=== PATIENT | male | born 1965 | race Caucasian/White ===

== ENCOUNTER 2018-01-17 15:18 | Inpatient (IN) | payer MEDICARE, MEDICAID ==
[~2018-01-17] VITALS: Ht 180.3 cm; Wt 79.0 kg
--- NOTE | ~2018-01-17 | HEMODYNAMI ---
PATIENT:GONSALO KRAUSE MEDICAL RECORD: [id number] : [birth year] LOCATION:[facility] ADMISSION DATE: 01/17/18 Generatedon:01/17/201820:47 Patient name: GONSALO KRAUSE Patient #: [id number] SSN: DO B: 1965 Date of study: 01/17/2018 Page: Of Hemodynamic Procedure Report Patient Data Patient Demographics Procedure consent was obtained First Name: GONSALO Gender: Male Last Name: JIMI : 1965 Patient #: [id number] Age: 52 year(s) Race: Unknown Additional ID: [id number] Past Medical History Allergies: No known allergies Admission Admission Data Admission Date: 01/17/2018 Admission Time: 15:18 Procedure Procedure Types Cath Procedure Peripheral Cath Diagnostic Procedure Abd/Extremity Extremities Procedure Description Procedure Date Procedure Date: 01/17/2018 Procedure Start Time: 18:10 Procedure Staff Name Function Favian Still MD Performing Physician Yusuf Mak RT Monitor Vee Reilly RT Scrub Hilton Roger RN Nurse Procedure Data Cath Procedure Fluoroscopy Diagnostic fluoroscopy Total fluoroscopy Time: time: 17.3 min 17.3 min Diagnostic fluoroscopy Total fluoroscopy dose: 525 dose: 525 mGy mGy Contrast Material Contrast Material Type Amount (ml) Isovue 300 180 Procedure Medications Medication Administration Route Dosage Versed I.V. 1 mg Fentanyl I.V. 50 mcg unlisted medication 1 Versed I.V. 1 mg Fentanyl I.V. 50 mcg Versed I.V. 1 mg Fentanyl I.V. 50 mcg Vancomycin I.V.P.B 1 g Versed I.V. 1 mg Fentanyl I.V. 50 mcg Heparin Flush Bag added to field 3 bags (1000units/500ml NS) Lidocaine 1% added to field 20 Versed I.V. 1 mg Fentanyl I.V. 50 mcg unlisted medication 10 Versed I.V. 1 mg Fentanyl I.V. 50 mcg Heparin Bolus I.V. 5000 units Heparin Bolus I.V. 2000 units Versed I.V. 1 mg Fentanyl I.V. 50 mcg Fentanyl I.V. 50 mcg Versed I.V. 1 mg Hemodynamics Rest Heart Rate: 107 (bpm) Snapshots Pre Cath Intra NCS Post Cath Vital Signs Time Heart Resp SPO2 etCO2 NIBP (mmHg) Rhythm Pain Sedation Rate (ipm) (%) (mmHg) Status Level (bpm) 18:05:43 109 29 97 19.5 129/83(97) NSR 0 (11) 10(A) , No pain 18:09:53 109 31 97 0 125/82(100) NSR 0 (11) 10(A) , No pain 18:14:03 113 20 96 19.5 131/80(102) NSR 0 (11) 10(A) , No pain 18:19:02 117 25 94 27 Measuring NSR 0 (11) 10(A) , No pain 18:19:10 116 24 95 24.7 121/79(100) NSR 0 (11) 10(A) , No pain 18:23:28 117 22 94 26.2 114/68(82) NSR 0 (11) 10(A) , No pain 18:27:34 115 17 93 33 120/81(98) NSR 0 (11) 10(A) , No pain 18:31:44 117 18 91 30.7 129/79(91) NSR 0 (11) 10(A) , No pain 18:35:54 119 15 92 33 124/77(97) NSR 0 (11) 10(A) , No pain 18:40:00 120 16 93 30 123/79(94) NSR 0 (11) 10(A) , No pain 18:44:07 119 17 92 30 124/80(93) NSR 0 (11) 10(A) , No pain 18:48:17 105 19 89 27 138/93(110) NSR 0 (11) 10(A) , No pain 18:53:16 105 18 90 28.5 Measuring NSR 0 (11) 10(A) , No pain 18:53:18 105 18 90 29.2 125/88(103) NSR 0 (11) 10(A) , No pain 18:57:26 109 18 94 31.5 130/87(103) NSR 0 (11) 10(A) , No pain 19:01:36 109 16 92 23.3 149/128(138) NSR 0 (11) 10(A) , No pain 19:04:57 109 20 87 27.8 130/92(109) NSR 0 (11) 10(A) , No pain 19:09:05 112 17 89 33 130/83(103) NSR 0 (11) 10(A) , No pain 19:13:15 112 18 90 33.8 132/88(106) NSR 0 (11) 10(A) , No pain 19:17:23 111 18 91 33 134/91(109) NSR 0 (11) 10(A) , No pain 19:21:34 107 19 92 27 135/90(107) NSR 0 (11) 10(A) , No pain 19:25:42 109 18 88 29.3 135/95(114) NSR 0 (11) 10(A) , No pain 19:29:52 104 19 93 30 138/96(122) NSR 0 (11) 10(A) , No pain 19:34:02 104 20 96 26.3 146/103(126) NSR 0 (11) 10(A) , No pain 19:38:16 103 16 96 30.8 152/106(120) NSR 0 (11) 10(A) , No pain 19:42:16 86 23 92 19.5 117/99(108) NSR 0 (11) 10(A) , No pain 19:46:22 115 19 61 27.7 132/86(106) NSR 0 (11) 10(A) , No pain 19:50:31 110 18 74 27.7 139/92(111) NSR 0 (11) 10(A) , No pain 19:54:43 112 19 85 26.2 138/91(119) NSR 0 (11) 10(A) , No pain 19:58:53 109 19 84 27.7 140/100(120) NSR 0 (11) 10(A) , No pain 20:03:05 114 19 25.5 139/93(121) NSR 0 (11) 10(A) , No pain 20:07:17 114 19 22.5 135/97(117) NSR 0 (11) 10(A) , No pain 20:11:27 114 18 96 18.8 145/101(113) NSR 0 (11) 10(A) , No pain 20:15:35 115 20 73 22.5 146/98(114) NSR 0 (11) 10(A) , No pain 20:19:40 121 22 79 17.3 136/96(105) NSR 0 (11) 10(A) , No pain 20:23:50 114 19 98 21 148/104(133) NSR 0 (11) 10(A) , No pain 20:28:02 115 21 99 21.8 151/103(124) NSR 0 (11) 10(A) , No pain 20:33:01 113 22 99 12.7 Measuring NSR 0 (11) 10(A) , No pain 20:33:14 112 22 100 12 150/103(127) NSR 0 (11) 10(A) , No pain 20:38:13 118 26 99 18 Measuring NSR 0 (11) 10(A) , No pain 20:39:02 97 20.3 No Cuff NSR 0 (11) 10(A) , No pain 20:43:01 78 10.5 No Cuff NSR 0 (11) 10(A) , No pain 20:47:01 17 86 9.7 No Cuff NSR 0 (11) 10(A) , No pain Medications Time Medication Route Dose Verified Delivered Reason Notes Effectiveness by by 18:14:13 Versed I.V. 1 mg Favian Canela for Acacia Still RN sedation 18:14:24 Fentanyl I.V. 50 mcg Favian Canela for Acacia Still RN sedation 18:14:48 cefepime ivpb 1 gm Acacia Lee RN, MD 18:17:55 Versed I.V. 1 mg Favian Canela for Acacia Still RN sedation 18:18:03 Fentanyl I.V. 50 mcg aFvian Canela for Acacia Still RN sedation 18:27:26 Versed I.V. 1 mg Favian Poseyr for Acacia Still RN sedation 18:27:36 Fentanyl I.V. 50 mcg Favian Canela for Acacia Still RN sedation 18:27:49 Vancomycin I.V.P.B 1 g Acacia Lee RN, MD 18:30:13 Heparin Bolus I.V. 5000 units Favian Hitlon Acacia Still RN, MD 18:32:09 Versed I.V. 1 mg Favian Hilton for Acacia Still RN sedation 18:32:17 Fentanyl I.V. 50 mcg Favian Hilton for Acacia Still RN sedation 18:32:36 Heparin Flush added 3 bags Favian Ballesteros used for Bag to Cheko Still MD procedure (1000units/500ml field GROSS NS) 18:32:50 Lidocaine 1% added 20ml vial Favian Ballesteros used for to Cheko Still MD procedure field GROSS 18:48:46 Versed I.V. 1 mg Favian Hilton for Acacia Still RN sedation 18:48:54 Fentanyl I.V. 50 mcg Favian Hilton for Acacia Still RN sedation 18:50:58 angiojet pulse 10mg/100ml Favian Ballesteros used for Sprays Cheko Still MD procedure 19:04:18 Versed I.V. 1 mg Favian Hilton for Acacia Still RN sedation 19:04:27 Fentanyl I.V. 50 mcg Favian Hilton for Acacia Still RN sedation 19:25:16 Heparin Bolus I.V. 2000 units Favian Hilton Acacia Still RN, MD 19:38:41 Versed I.V. 1 mg Favian Hilton for Acacia Still RN sedation 19:38:53 Fentanyl I.V. 50 mcg Favian Hilton for Acacia Still RN sedation 19:54:02 Fentanyl I.V. 50 mcg Favian Hilton for Acacia Still RN sedation 19:54:27 Versed I.V. 1 mg Favian Hilton for Acacia Still RN sedation Procedure Log Time Note 17:35:33 Yusuf Mak RT (R) (CV) sent for patient. Start room use. 17:35:43 Time tracking: Regular hours (M-F 7:00 - 5:00) 17:35:48 Plan of Care:Hemodynamics will remain stable., Cardiac rhythm will remain stable., Comfort level will be maintained., Respiratory function will remain adequate., Patient/ family verbilizes understanding of procedure., Procedure tolerated without complication., Recovers from procedure without complications.. 17:35:55 Patient received from ED to IR Alert and oriented. Tansferred to table in Prone position. 17:36:02 Correct patient and procedure confirmed by team. 17:36:05 Signed procedure consent form obtained from patient. 17:36:07 Full Disclosure recording started 17:36:08 ECG and BP/O2 sat monitors applied to patient. 17:36:09 - 17:36:14 H&P Date Dictated: 01/17/2018 Within 30 days and on chart.. 17:36:16 Pre-op teaching completed and patient verbalized understanding. 17:36:17 Pre-procedure instructions explained to patient. 17:36:19 Family unavailable. 17:36:22 Patient NPO since Midnight. 17:36:30 Is the patient allergic to Iodine/contrast media? No. 17:36:37 Is patient on blood thinner?No 17:36:38 Patient diabetic? Yes. 17:36:40 If diabetic: On Metformin? No 17:36:41 - 17:36:42 ----Pre-sedation anethsthesia assessment.---- 17:36:45 Previous problem with sedation/anesthesia? No ? 17:36:47 Snore? Yes 17:36:48 Sleep apnea? No 17:36:50 Deviated septum? No 17:36:52 Opens mouth fully? Yes 17:36:57 Sticks out tongue? Yes 17:36:59 Airway obstruction? No ? 17:37:01 Dentures? No ? 17:37:10 Patient pain scale 0/10 no pain. 17:37:21 IV patent on arrival in left forearm with 0.9% NaCl at [facility]. 17:37:27 Use device set IR Diagnostic 17:37:28 ACIST Syringe (62378) opened to sterile field. 17:37:29 ACIST Hand Control (09036) opened to sterile field. 17:37:29 ACIST Manifold (32203) opened to sterile field. 17:37:30 Bag Decanter (2002S) opened to sterile field. 17:37:30 Sterile Angiographic Pack opened to sterile field. 17:37:31 Tegaderm 4 x 4 (1626W) opened to sterile field. 17:37:41 lt Popliteal region area was prepped with chlora-prep and draped in sterile fashion 17:37:53 Alarms reviewed by R. N. 17:37:54 Sharps counted by scrub and verified by R.N. 18:04:38 Vital chart was started 18:04:39 Baseline sample Acquired. 18:10:01 Procedure started. 18:10:23 Local anesthetic to left popliteal vein with Lidocaine 1% by Favian Still MD.INITIAL ACCESS ONLY 18:10:40 Physician arrived 18:10:40 --------ALL STOP TIME OUT------ 18:10:41 Final Timeout: patient, procedure, and site verified with staff and physician. All members of the team are in agreement. 18:10:45 Popliteal region site verified by team. 18:10:50 Sedation plan: IV Moderate Sedation Medication:Versed, Fentanyl 18:11:39 Cordis 6Fr BRITE TIP 11cm sheath opened to sterile field. 18:11:40 DOC .035 wire (S88483) opened to sterile field. 18:11:41 Micropuncture VSI 4FR kit opened to sterile field. 18:11:42 TUBING Contrast Injection High Pressure (NLN655F) opened to sterile field. 18:13:20 Patient allergic to No known allergies 18:13:56 GLIDE CATHETER 5FR ANGLED 65cm (CG507) opened to sterile field. 18:14:13 Versed 1 mg I.V. was administered by Hilton Roger RN; for sedation; 18:14:24 Fentanyl 50 mcg I.V. was administered by Hilton Roger RN; for sedation ; 18:14:48 cefepime 1 gm ivpb was administered by Hilton Roger RN; ; 18:17:55 Versed 1 mg I.V. was administered by Hilton Roger RN; for sedation; 18:18:03 Fentanyl 50 mcg I.V. was administered by Hilton Roger RN; for sedation ; 18:26:09 TORQUE DEVICE PLASTIC .038 ( TD01) opened to sterile field. 18:27:26 Versed 1 mg I.V. was administered by Hilton Roger RN; for sedation; 18:27:36 Fentanyl 50 mcg I.V. was administered by Hilton Roger RN; for sedation ; 18:27:49 Vancomycin 1 g I.V.P.B was administered by Hilton Roger RN; ; 18:28:39 CXI Catheter 90cm (I98071) opened to sterile field. 18:30:13 Heparin Bolus 5000 units I.V. was administered by Hilton Roger RN; ; 18:32:09 Versed 1 mg I.V. was administered by Hilton Roger RN; for sedation; 18:32:17 Fentanyl 50 mcg I.V. was administered by Hilton Roger RN; for sedation ; 18:32:27 HANDY 260 wire (Z20094) opened to sterile field. 18:32:36 Heparin Flush Bag (1000units/500ml NS) 3 bags added to field was administered by Favian Still MD; used for procedure; 18:32:50 Lidocaine 1% 20ml vial added to field was administered by Favian Still MD; used for procedure; 18:34:29 Angiojet Power Pulse Delivery Kit opened to sterile field. 18:34:44 Angiojet PROXI 6Fr 90CM thrombectomy catheter opened to sterile field. 18:48:46 Versed 1 mg I.V. was administered by Hilton Roger RN; for sedation; 18:48:54 Fentanyl 50 mcg I.V. was administered by Hilton Roger RN; for sedation ; 18:50:58 angiojet 10mg/100ml pulse Sprays was administered by Favian Still MD; used for procedure; 19:04:18 Versed 1 mg I.V. was administered by Hilton Roger RN; for sedation; 19:04:27 Fentanyl 50 mcg I.V. was administered by Hilton Roger RN; for sedation ; 19:06:28 Access obtained with 4Fr micropunture. 19:07:11 GLIDE WIRE .035 180CM STRAIGHT (XA6916) opened to sterile field. 19:09:27 Inflate balloon Inflation number: 1 A Evercross 7 x 8 x 135 Balloon ([id number]) was prepped and advanced across the Undefined1, then inflated to 10 ALLISON for 0:00 (min:sec). 19:09:58 Inflation number: 2 The Evercross 8 x 8 x 135 Balloon ([id number]) was reinflated across the Undefined1, to 10 ALLISON for 0:10 (min:sec). 19:16:12 INFLATOR BasixTOUCH (OY4421) opened to sterile field. 19:25:16 Heparin Bolus 2000 units I.V. was administered by Hilton Roger RN; ; 19:29:30 HANDY 260 wire (D05624) opened to sterile field. 19:33:19 Inflate balloon Inflation number: 3 A POWERFLEX PRO 10.0 x 40 x 80cm balloon ([id number]) was prepped and advanced across the Undefined1, then inflated to 10 ALLISON for 0:00 (min:sec). 19:38:41 Versed 1 mg I.V. was administered by Hilton Roger RN; for sedation; 19:38:53 Fentanyl 50 mcg I.V. was administered by Hilton Roger RN; for sedation ; 19:46:48 Cordis 7Fr BRITE TIP 11cm sheath opened to sterile field. 19:52:15 Inflate balloon Inflation number: 4 A Evercross 12 x 40 x 135 ([id number]) was prepped and advanced across the Undefined1, then inflated to 8 ALLISON for 0:09 (min:sec). 19:54:02 Fentanyl 50 mcg I.V. was administered by Hilton Roger RN; for sedation ; 19:54:27 Versed 1 mg I.V. was administered by Hilton Roger RN; for sedation; 20:07:58 3-0 Vicryl Single Pack [id number] opened to sterile field. 20:10:11 Procedure ended.(Physican Out) 20:10:52 Fluoroscopy time 17.30 minutes. 20:10:56 Fluoroscopy dose: 525 mGy 20:10:56 Flurop Dose total: 525 20:10:58 Sharps counted by scrub and verified by R.N. 20:10:59 Insertion/operative site no bleeding no hematoma. 20:11:04 Post-op/insertion site Left Popliteal dressed using a 4 x 4 and Tegaderm. 20:11:26 Post left popliteal vein:stable 20:15:05 Post procedure instruction explained to patient.Patient verbalizes understanding. 20:15:06 Procedure and supply charges have been captured, reviewed, submitted an d are correct. 20:34:35 Contrast amount:Isovue 300 180ml. 20:47:12 Report given to CVICU. 20:47:16 Patient transfered to CVICU with Bed. 20:47:44 Vital chart was stopped Intervention Summary Intervention Notes Time ActionType Lesion and Equipment Used Action# Pressure Duration Attributes 19:09:27 Inflate Undefined1 Evercross 7 x 8 1 10 00:00 balloon x 135 Balloon ([id number]) 19:09:58 Reinflate Undefined1 Evercross 7 x 8 2 10 00:10 balloon x 135 Balloon ([id number]) 19:33:19 Inflate Undefined1 POWERFLEX PRO 3 10 00:00 balloon 10.0 x 40 x 80cm balloon ([id number]) 19:52:15 Inflate Undefined1 Evercross 12 x 4 8 00:09 balloon 40 x 135 ([id number]) Device Usage Item Name Manufacture Quantity Catalog Number Hospital Part Current M inimal Lot# / Charge Number Stock Stock Serial# Code ACIST Syringe Acist 1 73403 016630 582483 689308 2 0 (56830) [employer] ACIST Hand Acist 1 12144 811155 356294 160682 5 Control (21310) [employer] ACIST Manifold Acist 1 73966 186812 361949 513376 5 (08105) [employer] Systems Inc Bag Decanter Microtek 1 2001S 378684 94556 921817 5 (2001S) Medical Inc. Sterile Cardinal 1 [id number] 100541 811049 5 Angiographic Health Pack Tegaderm 4 x 4 3M 1 1626W 683630 111349 722926 5 (1626W) Cordis 6Fr Cardinal 1 [id number] 576169 021455 5 BRITE TIP 11cm Health sheath DOC .035 wire [employer] 1 S59758 363111 109671 5 (K56527) Micropuncture VSI VASCULAR 1 7266V 181206 217727 5 VSI 4FR kit SOLUTIONS TUBING Contrast Merit 1 [id number] 674585 773388 444803 5 Injection High Medical Pressure (SCX859V) GLIDE CATHETER Terumo 1 CG507 288783 126360 5 5FR ANGLED 65cm (CG507) TORQUE DEVICE Alcova 1 TD01 935470 976697 443108 5 PLASTIC .038 ( Scientific TD01) CXI Catheter [facility] 1 H23718 260489 354110 073494 5 [id number] 90cm (S82461) HANDY 260 wire [facility] 2 I18741 223150 56384 266555 5 8016709 (J45778) [id number] Angiojet Power Alcova 5 339630-1059 425068 524501 862138 5 Pulse Delivery Scientific Kit Angiojet PROXI Alcova 1 452108-067 606187 061087 642003 5 6Fr 90CM Scientific thrombectomy catheter GLIDE WIRE .035 Terumo 1 BA8093 818264 809191 5 180CM STRAIGHT (QZ3974) Evercross 7 x 8 Medtronic 1 [id number] 152274 195750 516170 5 x 135 Balloon ([id number]) INFLATOR Merit 1 CB6673 063121 310417 356893 5 [id number] [facility] (AC3101) POWERFLEX PRO Cardinal 1 [id number] 705884 353102 886892 5 10.0 x 40 x Health 80cm balloon (0062962D) Cordis 7Fr Cardinal 1 [id number] 910604 817546 5 BRITE TIP 11cm Health sheath Evercross 12 x Medtronic 1 [id number] 315264 437654 855599 5 40 x 135 ([id number]) 3-0 Vicryl Ethicon 1 [id number] 148007 629540 058323 5 Single Pack [id number] Signature Audit [place] Stage Time Signature Unsigned Intra-Procedure 01/17/2018 Yusuf 8:47:39 PM [place] RT (R) (CV) Signatures Monitor : Yusuf Signature : [place] RT Date : Time : [facility] [address] [place] [address]
--- NOTE | ~2018-01-17 | EC ---
PATIENT:GONSALO KRAUSE DATE OF SERVICE: 01/17/18 SEX: M MEDICAL RECORD: [id number] DATE OF : 69 LOCATION:[place] [address] AGE OF PATIENT: 52 ADMISSION DATE: 01/17/18 REFERRING PHYSICIAN: INTERPRETING PHYSICIAN: MINAL WICK MD ECHOCARDIOGRAM REPORT ECHO CHARGES Date: CLINICAL DIAGNOSIS: ECHOCARDIOGRAPHIC MEASUREMENTS (adult normal given) AC root (d.<3.7cm) cm LV Septum d (<1.2 cm> cm Valve Excursion cm LV Septum (systole) cm Left Atria (s.<4.0cm> cm LVPW d(<1.2cm) cm RV (d.<2.3cm) cm LVPW (sytole) cm LV diastole(<5.6CM) cm MV E-F(>70mm/sec) cm LV systole cm LVOT Diameter cm MV exc.(>10mm) cm Est.ejection fraction (50-75%) % DOPPLER: LVIT cm/sec A cm/sec E cm/sec LA cm/sec RVSP mmHg LVOT cm/sec AOP1/2T m/s Asc. Ao cm/sec RVOT cm/sec RA cm/sec PA cm/sec AV Gradient Peak mmHg AV Mean mmHg AV Area cm MV Gradient Peak mmHg MV Mean mmHg MV Area cm COMMENTS: Inductor Tester: Regulator Mechanic: SHAUN# Pericardial Effusion DATE OF SERVICE: 01/18/2018 FINDINGS: 1. Left ventricular chamber size is within normal limits. Left ventricular systolic function is normal. Overall ejection fraction estimated at 55%. 2. Left atrium, right atrium, and right ventricular chamber sizes are within normal limits. 3. Valvular structures have normal structure and motion. 4. Doppler interrogation reveals only trace tricuspid regurgitation. No other valvular insufficiency or stenosis. Pulmonary systolic pressure is estimated at ECHOCARDIOGRAM REPORT [id number] GONSALO KRAUSE 40 mmHg. 5. No evidence of pericardial effusion or left ventricular thrombus. 6. No evidence of vegetative endocarditis. TRANSINT:[id number] Voice Confirmation ID: [id number] DOCUMENT ID: [id number] MINAL WICK MD at 1843 CC: [id number] DICTATION DATE: 01/18/18 1433 CARGO SERVICE SUPERVISOR: 01/18/18 1504 ADM IN [facility] [address] [place] [address]
[2018-01-17] MEDS ORDERED: INSULIN (15:27)
[2018-01-17] MEDS ORDERED: LOPRESSOR25 MG PO (15:27)
[2018-01-17] MEDS ORDERED: SEROQUEL25 MG (15:27)
[2018-01-17 16:39] LABS: BASOPHILS 0.1 % (0-2); EOSINOPHILS 0.2 % (0-7); HEMATOCRIT 36.2 % (42.0-54.0); HEMOGLOBIN 12.3 g/dL (13.5-17.5); IMMATURE GRANULOCYTES 0.3 % (0-5); LYMPHOCYTES 17.3 % (15-50); MCH 30.6 pg (26.0-34.0); MEAN PLATELET VOLUME 8.9 fL (7.4-10.4); MONOCYTES 7.1 % (2-11); PLATELET COUNT 213 10x3/uL (130-400); RBC 4.02 10x6/uL (4.20-6.10); RDW 13.2 % (11.5-14.5); WBC 15.6 10x3/uL (4.8-10.8)
[2018-01-17 16:43] LABS: INR 1.15 (0.85-1.17); PROTIME 14.3 SECONDS (11.6-15.0)
[2018-01-17 16:44] LABS: APTT 34.2 SECONDS (22.8-39.4)
[2018-01-17 16:47] LABS: ALBUMIN 2.4 g/dL (3.4-5.0); ALKALINE PHOSPHATASE 132 U/L (46-116); ALT (SGPT) 15 U/L (10-68); BILIRUBIN - TOTAL 0.61 mg/dL (0.2-1.3); CALC OSMOLALITY 267 mosm/kg (275-300); CALCIUM 8.2 mg/dL (8.5-10.1); CARBON DIOXIDE 26.2 mmol/L (21.0-32.0); CHLORIDE - SERUM 100 mmol/L (98-107); GLUCOSE 125 mg/dL (74-106); MAGNESIUM - SERUM 2.3 mg/dL (1.8-2.4); POTASSIUM - SERUM 4.1 mmol/L (3.5-5.1); PROTEIN - SERUM 8.2 g/dL (6.4-8.2); SODIUM 133 mmol/L (136-145); UREA NITROGEN 15 mg/dL (7-18); eGFR NON AFRICAN AMERICAN 84 mL/min (90-120)
[2018-01-17] MEDS ORDERED: HUMALOG 30100 UNITS/ SC (21:19)
[2018-01-17] MEDS ORDERED: NEURONTIN800 MG PO (21:20)
[2018-01-17] MEDS ORDERED: SEROQUEL400 MG PO (21:23)
[2018-01-17 21:30] VITALS: BP 151/94
[2018-01-17 22:00] VITALS: BP 138/93
[2018-01-17 22:03] LABS: HEMATOCRIT 34.5 % (42.0-54.0); HEMOGLOBIN 11.7 g/dL (13.5-17.5); MCH 30.9 pg (26.0-34.0); MCHC 33.9 g/dL (31.0-37.0); MEAN PLATELET VOLUME 8.8 fL (7.4-10.4); RBC 3.79 10x6/uL (4.20-6.10); RDW 13.3 % (11.5-14.5); WBC 15.3 10x3/uL (4.8-10.8)
[2018-01-17 22:13] LABS: APTT 40.7 SECONDS (22.8-39.4); INR 1.21 (0.85-1.17); PROTIME 14.8 SECONDS (11.6-15.0)
[2018-01-17 22:15] VITALS: BMI 24.0
[2018-01-17 23:00] VITALS: BP 126/86
[2018-01-18] VITALS (26 sets, daily range): BP systolic 93–141; BP diastolic 51–88
[2018-01-18 06:50] LABS: BASOPHILS 0.2 % (0-2); EOSINOPHILS 0.9 % (0-7); HEMATOCRIT 35.5 % (42.0-54.0); HEMOGLOBIN 11.8 g/dL (13.5-17.5); IMMATURE GRANULOCYTES 0.5 % (0-5); LYMPHOCYTES 16.5 % (15-50); MCH 30.3 pg (26.0-34.0); MCHC 33.2 g/dL (31.0-37.0); MEAN PLATELET VOLUME 9.4 fL (7.4-10.4); MONOCYTES 9.2 % (2-11); NEUTROPHILS 72.7 % (40-80); PLATELET COUNT 202 10x3/uL (130-400); RDW 13.3 % (11.5-14.5); WBC 17.2 10x3/uL (4.8-10.8)
[2018-01-18 07:02] LABS: ALBUMIN 1.9 g/dL (3.4-5.0); ALKALINE PHOSPHATASE 117 U/L (46-116); ALT (SGPT) 13 U/L (10-68); BILIRUBIN - TOTAL 1.66 mg/dL (0.2-1.3); CALC OSMOLALITY 266 mosm/kg (275-300); CALCIUM 7.5 mg/dL (8.5-10.1); CARBON DIOXIDE 25.4 mmol/L (21.0-32.0); CHLORIDE - SERUM 100 mmol/L (98-107); CREATININE - SERUM 0.9 mg/dL (0.6-1.3); GLUCOSE 146 mg/dL (74-106); POTASSIUM - SERUM 3.9 mmol/L (3.5-5.1); PROTEIN - SERUM 6.8 g/dL (6.4-8.2); SODIUM 131 mmol/L (136-145); UREA NITROGEN 14 mg/dL (7-18); eGFR NON AFRICAN AMERICAN > 90 mL/min (90-120)
[2018-01-18 13:33] LABS: PROTEIN - BODY FLUID 5.2 G/DL
[2018-01-18 15:17] LABS: MACROPHAGES BF 2 %; NEUT - BF 66 %
[2018-01-18 22:48] LABS: HEMATOCRIT 32.2 % (42.0-54.0); HEMOGLOBIN 10.6 g/dL (13.5-17.5); MCH 29.9 pg (26.0-34.0); MCHC 32.9 g/dL (31.0-37.0); MCV 90.7 fL (80.0-100.0); MEAN PLATELET VOLUME 9.3 fL (7.4-10.4); RBC 3.55 10x6/uL (4.20-6.10); RDW 13.1 % (11.5-14.5); WBC 14.4 10x3/uL (4.8-10.8)
[2018-01-19] VITALS (23 sets, daily range): BP systolic 90–145; BP diastolic 45–86
[2018-01-19 05:52] LABS: BASOPHILS 0.1 % (0-2); EOSINOPHILS 1.3 % (0-7); HEMOGLOBIN 10.9 g/dL (13.5-17.5); IMMATURE GRANULOCYTES 0.2 % (0-5); LYMPHOCYTES 17.5 % (15-50); MCH 29.6 pg (26.0-34.0); MCV 89.7 fL (80.0-100.0); MEAN PLATELET VOLUME 8.7 fL (7.4-10.4); MONOCYTES 7.1 % (2-11); NEUTROPHILS 73.8 % (40-80); PLATELET COUNT 234 10x3/uL (130-400); RBC 3.68 10x6/uL (4.20-6.10); RDW 13.2 % (11.5-14.5); WBC 12.4 10x3/uL (4.8-10.8)
[2018-01-19 06:26] LABS: ALBUMIN 1.7 g/dL (3.4-5.0); ALKALINE PHOSPHATASE 121 U/L (46-116); ALT (SGPT) 11 U/L (10-68); BILIRUBIN - TOTAL 0.37 mg/dL (0.2-1.3); CALCIUM 7.4 mg/dL (8.5-10.1); CARBON DIOXIDE 25.9 mmol/L (21.0-32.0); CHLORIDE - SERUM 102 mmol/L (98-107); CREATININE - SERUM 0.8 mg/dL (0.6-1.3); GLUCOSE 147 mg/dL (74-106); POTASSIUM - SERUM 3.4 mmol/L (3.5-5.1); PROTEIN - SERUM 6.3 g/dL (6.4-8.2); SODIUM 133 mmol/L (136-145); eGFR NON AFRICAN AMERICAN > 90 mL/min (90-120)
[2018-01-19 06:29] LABS: CALC OSMOLALITY 267 mosm/kg (275-300); UREA NITROGEN 9 mg/dL (7-18)
[2018-01-19 07:26] LABS: HEPATITIS C ANTIBODY >11.0 (0.0-0.9)
[2018-01-20] VITALS (16 sets, daily range): BP systolic 117–145; BP diastolic 30–87
[2018-01-20 05:52] LABS: BASOPHILS 0.1 % (0-2); EOSINOPHILS 1.1 % (0-7); HEMATOCRIT 32.4 % (42.0-54.0); HEMOGLOBIN 10.7 g/dL (13.5-17.5); IMMATURE GRANULOCYTES 0.3 % (0-5); LYMPHOCYTES 15.2 % (15-50); MCH 29.6 pg (26.0-34.0); MCV 89.5 fL (80.0-100.0); MEAN PLATELET VOLUME 8.7 fL (7.4-10.4); NEUTROPHILS 76.3 % (40-80); PLATELET COUNT 264 10x3/uL (130-400); RBC 3.62 10x6/uL (4.20-6.10); WBC 11.5 10x3/uL (4.8-10.8)
[2018-01-20 06:08] LABS: ALBUMIN 1.7 g/dL (3.4-5.0); ALKALINE PHOSPHATASE 136 U/L (46-116); ALT (SGPT) 13 U/L (10-68); BILIRUBIN - TOTAL 0.34 mg/dL (0.2-1.3); CALCIUM 7.5 mg/dL (8.5-10.1); CARBON DIOXIDE 24.3 mmol/L (21.0-32.0); CHLORIDE - SERUM 102 mmol/L (98-107); GLUCOSE 142 mg/dL (74-106); PROTEIN - SERUM 6.6 g/dL (6.4-8.2); SODIUM 134 mmol/L (136-145); eGFR NON AFRICAN AMERICAN 84 mL/min (90-120)
[2018-01-20 06:09] LABS: CALC OSMOLALITY 267 mosm/kg (275-300); POTASSIUM - SERUM 3.6 mmol/L (3.5-5.1); UREA NITROGEN 6 mg/dL (7-18)
[2018-01-20 13:44] LABS: APPEARANCE CLEAR (CLEAR); BILIRUBIN NEGATIVE (NEGATIVE); COLOR YELLOW (YELLOW); GLUCOSE NEGATIVE (NEGATIVE); KETONE NEGATIVE (NEGATIVE); NITRITE NEGATIVE (NEGATIVE); PROTEIN NEGATIVE (NEGATIVE); SPECIFIC GRAVITY 1.005 (1.005-1.020); UROBILINOGEN NORMAL (NORMAL)
[2018-01-20 13:53] LABS: UDS - AMPHET POSITIVE QUAL (NEGATIVE); UDS - BARB NEGATIVE QUAL (NEGATIVE); UDS - BENZO NEGATIVE QUAL (NEGATIVE); UDS - COCAINE NEGATIVE QUAL (NEGATIVE); UDS - OPIATE NEGATIVE QUAL (NEGATIVE); UDS - PCP NEGATIVE QUAL (NEGATIVE); UDS - THC NEGATIVE QUAL (NEGATIVE)
[2018-01-21 04:48] VITALS: BP 116/75
[2018-01-21 05:26] LABS: BASOPHILS 0.1 % (0-2); HEMATOCRIT 32.7 % (42.0-54.0); HEMOGLOBIN 10.9 g/dL (13.5-17.5); IMMATURE GRANULOCYTES 0.2 % (0-5); LYMPHOCYTES 18.2 % (15-50); MCH 29.8 pg (26.0-34.0); MCHC 33.3 g/dL (31.0-37.0); MCV 89.3 fL (80.0-100.0); MEAN PLATELET VOLUME 8.7 fL (7.4-10.4); MONOCYTES 7.9 % (2-11); NEUTROPHILS 71.6 % (40-80); PLATELET COUNT 307 10x3/uL (130-400); RBC 3.66 10x6/uL (4.20-6.10); RDW 13.1 % (11.5-14.5); WBC 9.2 10x3/uL (4.8-10.8)
[2018-01-21 05:43] LABS: ALBUMIN 1.9 g/dL (3.4-5.0); ALKALINE PHOSPHATASE 136 U/L (46-116); ALT (SGPT) 13 U/L (10-68); BILIRUBIN - TOTAL 0.32 mg/dL (0.2-1.3); CALC OSMOLALITY 272 mosm/kg (275-300); CALCIUM 7.6 mg/dL (8.5-10.1); CARBON DIOXIDE 26.3 mmol/L (21.0-32.0); CHLORIDE - SERUM 102 mmol/L (98-107); CREATININE - SERUM 0.8 mg/dL (0.6-1.3); GLUCOSE 157 mg/dL (74-106); POTASSIUM - SERUM 3.5 mmol/L (3.5-5.1); PROTEIN - SERUM 6.4 g/dL (6.4-8.2); SODIUM 136 mmol/L (136-145); UREA NITROGEN 6 mg/dL (7-18); eGFR NON AFRICAN AMERICAN > 90 mL/min (90-120)
[2018-01-21 12:02] VITALS: BP 127/78
[2018-01-21 17:01] VITALS: BP 126/68
[2018-01-21 22:14] VITALS: BP 137/81
[2018-01-22 05:40] VITALS: BP 113/71
[2018-01-22 06:20] LABS: ALKALINE PHOSPHATASE 145 U/L (46-116); ALT (SGPT) 15 U/L (10-68); BILIRUBIN - TOTAL 0.24 mg/dL (0.2-1.3); CALC OSMOLALITY 271 mosm/kg (275-300); CALCIUM 7.4 mg/dL (8.5-10.1); CARBON DIOXIDE 25.2 mmol/L (21.0-32.0); CHLORIDE - SERUM 101 mmol/L (98-107); CREATININE - SERUM 0.9 mg/dL (0.6-1.3); GLUCOSE 166 mg/dL (74-106); POTASSIUM - SERUM 4.1 mmol/L (3.5-5.1); PROTEIN - SERUM 6.6 g/dL (6.4-8.2); SODIUM 135 mmol/L (136-145); UREA NITROGEN 7 mg/dL (7-18); eGFR NON AFRICAN AMERICAN > 90 mL/min (90-120)
[2018-01-22 06:55] LABS: BASOPHILS 0.2 % (0-2); EOSINOPHILS 1.8 % (0-7); HEMOGLOBIN 11.3 g/dL (13.5-17.5); IMMATURE GRANULOCYTES 0.5 % (0-5); LYMPHOCYTES 23.5 % (15-50); MCH 29.9 pg (26.0-34.0); MCHC 33.2 g/dL (31.0-37.0); MCV 89.9 fL (80.0-100.0); MEAN PLATELET VOLUME 9.1 fL (7.4-10.4); MONOCYTES 8.4 % (2-11); NEUTROPHILS 65.6 % (40-80); PLATELET COUNT 343 10x3/uL (130-400); RBC 3.78 10x6/uL (4.20-6.10); RDW 13.3 % (11.5-14.5); WBC 10.7 10x3/uL (4.8-10.8)
[2018-01-22 08:13] LABS: APTT 33.3 SECONDS (22.8-39.4); INR 0.97 (0.85-1.17); PROTIME 12.5 SECONDS (11.6-15.0)
[2018-01-22 08:24] VITALS: BP 122/73
[2018-01-22 12:42] VITALS: BP 113/67
[2018-01-22 16:02] VITALS: BP 129/81
[2018-01-22 20:00] VITALS: BP 140/91
[2018-01-23 06:06] VITALS: BP 123/76
[2018-01-23 06:10] LABS: BASOPHILS 0.2 % (0-2); EOSINOPHILS 2.1 % (0-7); HEMATOCRIT 33.4 % (42.0-54.0); HEMOGLOBIN 11.2 g/dL (13.5-17.5); IMMATURE GRANULOCYTES 0.6 % (0-5); MCH 30.2 pg (26.0-34.0); MCHC 33.5 g/dL (31.0-37.0); MEAN PLATELET VOLUME 8.8 fL (7.4-10.4); MONOCYTES 9.5 % (2-11); NEUTROPHILS 63.6 % (40-80); PLATELET COUNT 369 10x3/uL (130-400); RBC 3.71 10x6/uL (4.20-6.10); RDW 13.6 % (11.5-14.5); WBC 12.2 10x3/uL (4.8-10.8)
[2018-01-23 06:32] LABS: ALKALINE PHOSPHATASE 136 U/L (46-116); ALT (SGPT) 12 U/L (10-68); BILIRUBIN - TOTAL 0.27 mg/dL (0.2-1.3); CALC OSMOLALITY 270 mosm/kg (275-300); CALCIUM 7.9 mg/dL (8.5-10.1); CARBON DIOXIDE 25.6 mmol/L (21.0-32.0); CHLORIDE - SERUM 100 mmol/L (98-107); CREATININE - SERUM 0.8 mg/dL (0.6-1.3); GLUCOSE 131 mg/dL (74-106); POTASSIUM - SERUM 3.7 mmol/L (3.5-5.1); PROTEIN - SERUM 7.5 g/dL (6.4-8.2); SODIUM 135 mmol/L (136-145); eGFR NON AFRICAN AMERICAN > 90 mL/min (90-120)
[2018-01-23 06:33] LABS: UREA NITROGEN 9 mg/dL (7-18)
[2018-01-23 08:23] VITALS: BP 126/80
[2018-01-23 11:30] VITALS: BP 100/80
[2018-01-23 12:14] LABS: CEA 6.9 ng/mL (0.0-4.7)
[2018-01-23 15:30] VITALS: BP 109/65
[2018-01-23 21:13] VITALS: BP 114/79
[2018-01-24 05:14] VITALS: BP 124/74
[2018-01-24 05:53] LABS: BASOPHILS 0.2 % (0-2); EOSINOPHILS 2.9 % (0-7); HEMATOCRIT 32.9 % (42.0-54.0); HEMOGLOBIN 10.9 g/dL (13.5-17.5); IMMATURE GRANULOCYTES 0.8 % (0-5); LYMPHOCYTES 23.6 % (15-50); MCH 30.2 pg (26.0-34.0); MCHC 33.1 g/dL (31.0-37.0); MCV 91.1 fL (80.0-100.0); MEAN PLATELET VOLUME 8.9 fL (7.4-10.4); MONOCYTES 8.9 % (2-11); NEUTROPHILS 63.6 % (40-80); PLATELET COUNT 353 10x3/uL (130-400); RBC 3.61 10x6/uL (4.20-6.10); RDW 13.6 % (11.5-14.5); WBC 12.6 10x3/uL (4.8-10.8)
[2018-01-24 06:46] LABS: ALKALINE PHOSPHATASE 148 U/L (46-116); ALT (SGPT) 15 U/L (10-68); BILIRUBIN - TOTAL 0.22 mg/dL (0.2-1.3); CALC OSMOLALITY 272 mosm/kg (275-300); CALCIUM 7.5 mg/dL (8.5-10.1); CARBON DIOXIDE 24.2 mmol/L (21.0-32.0); CHLORIDE - SERUM 101 mmol/L (98-107); CREATININE - SERUM 0.9 mg/dL (0.6-1.3); GLUCOSE 176 mg/dL (74-106); POTASSIUM - SERUM 4.1 mmol/L (3.5-5.1); PROTEIN - SERUM 6.7 g/dL (6.4-8.2); SODIUM 135 mmol/L (136-145); UREA NITROGEN 11 mg/dL (7-18); eGFR NON AFRICAN AMERICAN > 90 mL/min (90-120)
[2018-01-24 09:30] VITALS: BP 117/76
[2018-01-24 12:34] VITALS: BP 112/71
[2018-01-24] MEDS ORDERED: NICODERM C1 PATCH .1 TRANSDERM (13:06)
[2018-01-24] MEDS ORDERED: ELIQUIS5 MG PO (13:06)
[2018-01-24] MEDS ORDERED: LISINOPRIL10 MG PO (13:06)
[2018-01-24 13:44] VITALS: Ht 180.3 cm; Wt 79.0 kg
[2018-01-24] MEDS ORDERED: HYDROCODON-ACE1 EAC7 PO (14:29)
[2018-01-28 18:08] LABS: FACTOR II DNA ANALYSIS Negative (())
== END 2018-01-24 16:30 | disposition home or self-care (01) | DRG 270 ==
LOC: D.ER 15:18 → D.CVICU 21:05 → D.MS 21:05
PROVIDERS: Family Medicine; General Practice; Internal Medicine Hematology & Oncology; Internal Medicine Nephrology; Radiology Diagnostic Radiology
PROC: 06CN3ZZ Extirpation of Matter from Left Femoral Vein, Percutaneous Approach (ICD-10-PCS; 2018-01-17)
PROC: 3E03317 Introduction of Other Thrombolytic into Peripheral Vein, Percutaneous Approach (ICD-10-PCS; 2018-01-17)
PROC: B51C1ZZ Fluoroscopy of Left Lower Extremity Veins using Low Osmolar Contrast (ICD-10-PCS; principal; 2018-01-17 17:41)
PROC: 0W993ZZ Drainage of Right Pleural Cavity, Percutaneous Approach (ICD-10-PCS; 2018-01-18)
DX: I82.412 Acute embolism and thrombosis of left femoral vein (principal); E43 Unspecified severe protein-calorie malnutrition; J96.01 Acute respiratory failure with hypoxia; I26.99 Other pulmonary embolism without acute cor pulmonale; J90 Pleural effusion, not elsewhere classified; E87.1 Hypo-osmolality and hyponatremia; F17.203 Nicotine dependence unspecified, with withdrawal; C41.3 Malignant neoplasm of ribs, sternum and clavicle; I82.432 Acute embolism and thrombosis of left popliteal vein; I10 Essential (primary) hypertension; E11.9 Type 2 diabetes mellitus without complications; F32.9 Major depressive disorder, single episode, unspecified; D64.9 Anemia, unspecified; R74.8 Abnormal levels of other serum enzymes; I27.20 Pulmonary hypertension, unspecified; J41.0 Simple chronic bronchitis

== ENCOUNTER 2018-01-26 21:45 | Inpatient (IN) | payer MEDICARE, MEDICAID ==
[~2018-01-26] VITALS: Ht 180.3 cm; Wt 79.3 kg
--- NOTE | ~2018-01-26 | HEMODYNAMI ---
PATIENT:GONSALO KRAUSE MEDICAL RECORD: [id number] : 69 LOCATION:[facility] D.2106 ADMISSION DATE: 01/26/18 Generatedon:01/29/201811:42 Patient name: GONSALO KRAUSE Patient #: [id number] SSN: DO B: 1965 Date of study: 01/29/2018 Page: Of Hemodynamic Procedure Report Patient Data Patient Demographics Procedure consent was obtained First Name: GONSALO Gender: Male Last Name: JIMI : 1965 Patient #: [id number] Age: 52 year(s) Race: Unknown Additional ID: [id number] Contact details [address]: [address] [place] [address] State: [place] City: [place] Zip code: [address] Past Medical History Allergies: No known allergies Admission Admission Data Admission Date: 01/26/2018 Admission Time: 23:07 Room #: D.2106 Procedure Procedure Types Cath Procedure Peripheral Cath Diagnostic Procedure Miscellaneous Procedure Description Procedure Date Procedure Date: 01/29/2018 Procedure Start Time: 9:25 Procedure Staff Name Function Favian Still MD Performing Physician Yusuf Mak RT Monitor Vee Reilly RT Scrub Tierra Martinez RN Nurse Acacia Canela RN Nurse Procedure Data Cath Procedure Contrast Material Contrast Material Type Amount (ml) Isovue 300 130 Procedure Medications Medication Administration Route Dosage Heparin Flush Bag added to field 3 bags (1000units/500ml NS) Lidocaine 1% added to field 20 Oxygen etCO2 Nasal cannula 3 l/min Versed I.V. 2 mg Fentanyl I.V. 100 mcg Benadryl I.V. 50 mg Fentanyl I.V. 100 mcg Versed I.V. 2 mg Heparin Flush Bag added to field 1 bags (1000units/500ml NS) Heparin Bolus I.V. 5000 units Versed I.V. 1 mg Fentanyl I.V. 50 mcg Fentanyl I.V. 50 mcg Versed I.V. 1 mg unlisted medication added to field 10 mg Versed I.V. 1 mg Fentanyl I.V. 50 mcg Fentanyl I.V. 50 mcg Versed I.V. 1 mg Versed I.V. 1 mg Fentanyl I.V. 50 mcg Heparin Bolus I.V. 2000 units Versed I.V. 1 mg Fentanyl I.V. 50 mcg Hemodynamics Rest Heart Rate: 130 (bpm) Snapshots Pre Cath Intra NCS Post Cath Vital Signs Time Heart Resp SPO2 etCO2 NIBP (mmHg) Rhythm Pain Sedation Rate (ipm) (%) (mmHg) Status Level (bpm) 9:06:49 130 22 91 24.8 100/60(93) ST 0 (11) 9(A) , No pain 9:11:42 132 26 91 27.1 86/54(82) ST 0 (11) 9(A) , No pain 9:16:39 132 28 92 23.3 129/62(105) ST 0 (11) 9(A) , No pain 9:20:59 128 20 92 29.4 130/74(101) ST 0 (11) 9(A) , No pain 9:25:58 129 [address] 0 (11) 9(A) , No pain 9:26:27 131 22 92 27.9 121/70(93) ST 0 (11) 9(A) , No pain 9:31:26 121 [address] 0 (11) 8(A) , No pain 9:32:13 134 [address] 0 (11) 8(A) , No pain 9:34:39 131 11 87 12 123/68(87) ST 0 (11) 8(A) , No pain 9:38:51 134 14 86 0 138/84(117) ST 0 (11) 8(A) , No pain 9:43:11 123 14 89 0 132/80(91) ST 0 (11) 8(A) , No pain 9:48:10 121 [address] 0 (11) 8(A) , No pain 9:48:20 110 13 90 0 125/72(88) ST 0 (11) 8(A) , No pain 9:52:32 136 14 91 0 121/76(91) ST 0 (11) 8(A) , No pain 9:56:44 131 14 90 0 125/77(101) ST 0 (11) 8(A) , No pain 10:01:43 130 [address] 0 (11) 8(A) , No pain 10:03:05 130 [address] 0 (11) 8(A) Exceeded , No pain 10:04:31 131 13 93 37.7 114/74(95) ST 0 (11) 8(A) , No pain 10:09:30 130 [address] 0 (11) 8(A) , No pain 10:09:32 130 13 93 39.2 123/72(92) ST 0 (11) 8(A) , No pain 10:13:46 129 13 90 37.7 126/74(97) ST 0 (11) 8(A) , No pain 10:17:58 128 13 92 37.7 128/81(95) ST 0 (11) 8(A) , No pain 10:22:12 128 12 93 39.9 130/80(94) ST 0 (11) 8(A) , No pain 10:26:26 128 12 93 40.7 137/81(102) ST 0 (11) 8(A) , No pain 10:30:36 127 13 94 39.2 128/87(100) ST 0 (11) 8(A) , No pain 10:34:50 125 14 92 39.2 132/82(97) ST 0 (11) 8(A) , No pain 10:39:04 126 12 95 40.7 133/88(101) ST 0 (11) 8(A) , No pain 10:43:20 125 12 98 41.4 132/84(100) ST 0 (11) 8(A) , No pain 10:47:34 126 13 98 40.7 135/86(92) ST 0 (11) 8(A) , No pain 10:51:48 122 14 96 36.2 129/89(113) ST 0 (11) 8(A) , No pain 10:56:02 125 14 95 33.9 137/80(114) ST 0 (11) 8(A) , No pain 11:00:14 125 13 96 36.2 140/82(104) ST 0 (11) 8(A) , No pain 11:04:30 124 14 98 36.9 138/88(110) ST 0 (11) 8(A) , No pain 11:09:29 124 [address] 0 (11) 8(A) , No pain 11:09:35 124 13 98 36.9 143/93(108) ST 0 (11) 8(A) , No pain 11:13:51 125 13 98 38.4 146/91(117) ST 0 (11) 8(A) , No pain 11:18:07 123 14 94 34.6 143/95(109) ST 0 (11) 8(A) , No pain 11:23:06 123 [address] 0 (11) 8(A) , No pain 11:23:26 122 15 97 33.9 145/89(107) ST 0 (11) 8(A) , No pain 11:27:42 123 15 98 34.6 144/94(114) ST 0 (11) 8(A) , No pain 11:31:58 123 14 98 33.1 145/98(118) ST 0 (11) 8(A) , No pain 11:36:15 122 14 98 30.9 143/92(110) ST 0 (11) 8(A) , No pain 11:40:29 122 13 97 32.4 148/95(117) ST 0 (11) 8(A) , No pain Medications Time Medication Route Dose Verified Delivered Reason Notes Effectiveness by by 9:05:06 Heparin Flush added 3 bags Favian Ballesteros used for Bag to Cheko Still MD procedure (1000units/500ml field GROSS NS) 9:05:17 Lidocaine 1% added 20ml vial Favian Ballesteros used for to Cheko Still MD procedure field GROSS 9:05:34 Oxygen etCO2 3 l/min Favian Mayorga used for Nasal Juan Still RN procedure cannula 9:28:13 Versed I.V. 2 mg Favian Roger for Dozing Hilton Still RN sedation intermittently MD @ 9:41:35 9:28:25 Fentanyl I.V. 100 mcg Favian Roger for Dozing Hilton Still RN sedation intermittently MD @ 9:41:33 9:37:55 Benadryl I.V. 50 mg Favian Mayorga for Juan Still RN sedation 9:38:59 Fentanyl I.V. 100 mcg Favian Acacia for Hilton Still RN sedation 9:39:09 Versed I.V. 2 mg Favian Acacia for Hilton Still RN sedation 9:43:09 Heparin Flush added 1 bags Favian Acacia used for Bag to Hilton Still RN procedure (1000units/500ml field GROSS NS) 9:45:21 activase added 10mg Favian Favian Per to Cheko Still MD protocol field GROSS 9:52:27 Heparin Bolus I.V. 5000 Favian Tierra Per units Juan Still RN protocol 9:52:53 Versed I.V. 1 mg Favian Acacia for Sedated @ Hilton Still RN sedation 10:05:07 9:53:05 Fentanyl I.V. 50 mcg Favian Acacia for Sedated @ Hilton Still RN sedation 10:05:03 10:04:00 Fentanyl I.V. 50 mcg Favian Acacia for Sedated @ Hilton Still RN sedation 10:30:45 10:04:09 Versed I.V. 1 mg Favian Acacia for Sedated @ Hilton Still RN sedation 10:30:40 10:15:55 Versed I.V. 1 mg Favian Acacia for Sedated @ Hilton Still RN sedation 10:30:36 10:16:04 Fentanyl I.V. 50 mcg Favian Acacia for Sedated @ Hilton Still RN sedation 10:30:33 10:30:12 Fentanyl I.V. 50 mcg Favian Acacia for Hilton Still RN sedation 10:30:22 Versed I.V. 1 mg Favian Acacia for Hilton Still RN sedation 10:43:04 Versed I.V. 1 mg Favian Acacia for Hilton Still RN sedation 10:43:13 Fentanyl I.V. 50 mcg Favian Acacia for Hilton Still RN sedation 10:51:03 Heparin Bolus I.V. 2000units Favian Acacia Per Hilton Still RN protocol 11:11:51 Versed I.V. 1 mg Favian Acacia for Hilton Still RN sedation 11:11:57 Fentanyl I.V. 50 mcg Favian Acacia for Burda, Hilton RN sedation MD Procedure Log Time Note 8:48:52 Yusuf Riddlekalyn RT (R) (CV) sent for patient. Start room use. 8:49:06 Time tracking: Regular hours (M-F 7:00 - 5:00) 8:49:12 Plan of Care:Hemodynamics will remain stable., Cardiac rhythm will remain stable., Comfort level will be maintained., Respiratory function will remain adequate., Patient/ family verbilizes understanding of procedure., Procedure tolerated without complication., Recovers from procedure without complications.. 8:49:29 Patient received from [employer] to Alert and oriented. Tansferred to table in Prone position. 8:49:37 Correct patient and procedure confirmed by team. 8:49:43 Signed procedure consent form obtained from patient. 8:49:46 ECG and BP/O2 sat monitors applied to patient. 8:49:48 Full Disclosure recording started 8:50:41 - 8:50:49 H&P Date Dictated: 01/29/2018 Within 30 days and on chart.. 8:50:58 Pre-procedure instructions explained to patient. 8:50:59 Pre-op teaching completed and patient verbalized understanding. 8:51:17 Family unavailable. 8:51:23 Patient NPO since Midnight. 8:51:28 Is the patient allergic to Iodine/contrast media? No. 8:51:29 Is patient on blood thinner?Yes 8:51:32 ACC The patient was administered the following blood thiners within the last 24 hours: ACCLovenox 8:51:36 - 8:51:37 ----Pre-sedation anethsthesia assessment.---- 8:51:44 Previous problem with sedation/anesthesia? No ? 8:51:48 Snore? Yes 8:51:50 Sleep apnea? No 8:51:52 Deviated septum? No 8:51:54 Opens mouth fully? No 8:52:02 Sticks out tongue? Yes 8:52:08 Airway obstruction? Yes pe 8:52:15 Use device set IR Diagnostic 8:52:16 Tegaderm 4 x 4 (1626W) opened to sterile field. 8:52:17 Sterile Angiographic Pack opened to sterile field. 8:52:18 Bag Decanter (2001S) opened to sterile field. 8:52:19 ACIST Manifold (10652) opened to sterile field. 8:52:19 ACIST Hand Control (28288) opened to sterile field. 8:52:20 ACIST Syringe (09499) opened to sterile field. 8:52:34 Patient pain scale 0/10 no pain. 8:52:43 IV patent on arrival in left forearm with 0.9% NaCl at [facility]. 8:52:45 Sharps counted by scrub and verified by R.N. 8:52:45 Alarms reviewed by R. N. 8:52:52 lt Popliteal region area was prepped with chlora-prep and draped in sterile fashion 9:05:06 Heparin Flush Bag (1000units/500ml NS) 3 bags added to field was administered by Favian Still MD; used for procedure; 9:05:17 Lidocaine 1% 20ml vial added to field was administered by Favian Still MD; used for procedure; 9:05:34 Oxygen 3 l/min etCO2 Nasal cannula was administered by Tierra Martinez RN; used for procedure; 9:05:36 Vital chart was started 9:05:50 Baseline sample Acquired. 9:24:06 Physician arrived 9:24:08 --------ALL STOP TIME OUT------ 9:24:08 Final Timeout: patient, procedure, and site verified with staff and physician. All members of the team are in agreement. 9:24:11 left Popliteal region site verified by team. 9:24:17 Sedation plan: IV Moderate Sedation Medication:Versed, Fentanyl 9:25:08 Procedure started. 9:25:15 Local anesthetic to left popliteal vein with Lidocaine 1% by Favian Still MD.INITIAL ACCESS ONLY 9:25:19 Micropuncture VSI 4FR kit opened to sterile field. 9:25:19 DOC .035 wire (X16230) opened to sterile field. 9:25:[address] [place] (656796) opened to sterile field. 9:25:20 Cordis 6Fr BRITE TIP 11cm sheath opened to sterile field. 9:28:13 Versed 2 mg I.V. was administered by Acacia Canela RN; for sedation; 9:28:25 Fentanyl 100 mcg I.V. was administered by Acacia Canela RN; for sedation; 9:33:46 Micropuncture VSI 4FR kit opened to sterile field. 9:35:44 patient moving alot while trying to get access more meds orderded 9:37:55 Benadryl 50 mg I.V. was administered by Tierra Martinez RN; for sedation; 9:38:59 Fentanyl 100 mcg I.V. was administered by Acacia Canela RN; for sedation; 9:39:05 GLIDE CATHETER 5FR ANGLED 65cm (CG507) opened to sterile field. 9:39:09 Versed 2 mg I.V. was administered by Acacia Canela RN; for sedation; 9:40:38 GLIDE WIRE .038 180cm ANGLED (BZ3810) opened to sterile field. 9:40:39 TORQUE DEVICE PLASTIC .038 ( TD01) opened to sterile field. 9:41:33 Effectiveness of Fentanyl delivered @ 9:28:25 is: Dozing intermittently 9:41:35 Effectiveness of Versed delivered @ 9:28:13 is: Dozing intermittently 9:43:09 Heparin Flush Bag (1000units/500ml NS) 1 bags added to field was administered by Acacia Canela RN; used for procedure; 9:44:46 GLIDE WIRE Super Stiff Angled 260cm (DD8678) opened to sterile field. 9:45:21 activase 10mg added to field was administered by Favian Still MD; Per protocol; 9:45:21 GLIDE CATHETER 5FR ANGLED 100cm (CG508) opened to sterile field. 9:47:28 HANDY 260 wire (C19204) opened to sterile field. 9:51:28 Angiojet Power Pulse Delivery Kit opened to sterile field. 9:51:31 Angiojet PROXI 6Fr 90CM thrombectomy catheter opened to sterile field. 9::27 Heparin Bolus 5000 units I.V. was administered by Tierra Martinez RN; Per protocol; ::53 Versed 1 mg I.V. was administered by Acacia Canela RN; for sedation; :53:05 Fentanyl 50 mcg I.V. was administered by Acacia Canela RN; for sedation ; 10:04:00 Fentanyl 50 mcg I.V. was administered by Acacia Canela RN; for sedation ; 10::09 Versed 1 mg I.V. was administered by Acacia Canela RN; for sedation; 10:05:03 Effectiveness of Fentanyl delivered @ 9:53:05 is: Sedated 10:05:07 Effectiveness of Versed delivered @ ::53 is: Sedated 10::55 Versed 1 mg I.V. was administered by Acacia Canela RN; for sedation; 10:16:04 Fentanyl 50 mcg I.V. was administered by Acacia Canela RN; for sedation ; 10:17:26 INFLATOR BasixTOUCH (RC4029) opened to sterile field. 10:18:29 Inflate balloon Inflation number: 1 A Evercross 8 x 100 x 135 Balloon ([id number]) was prepped and advanced across the Undefined1, then inflated (min:sec). 10:24:02 BALLOON INFALTED MULTIPLE TIMES 10:26:30 Zelante 8Fr Angiojet catheter opened to sterile field. 10:30:12 Fentanyl 50 mcg I.V. was administered by Acacia Canela RN; for sedation ; 10:30:22 Versed 1 mg I.V. was administered by Acacia Canela RN; for sedation; 10:30:33 Effectiveness of Fentanyl delivered @ 10:16:04 is: Sedated 10:30:36 Effectiveness of Versed delivered @ 10:15:55 is: Sedated 10:30:40 Effectiveness of Versed delivered @ 10:04:09 is: Sedated 10:30:45 Effectiveness of Fentanyl delivered @ 10:04:00 is: Sedated 10:41:21 St Kalyan 10FR 23CM sheath opened to sterile field. 10:43:04 Versed 1 mg I.V. was administered by Acacia Hilton RN; for sedation; 10:43:13 Fentanyl 50 mcg I.V. was administered by Acacia Canela RN; for sedation ; 10:45:56 Inflate balloon Inflation number: 2 A Evercross 10 x 60 x 135 Balloon ([id number]) was prepped and advanced across the Undefined1, then inflated 10:51:03 Heparin Bolus 2000units I.V. was administered by Acacia Canela RN; Per protocol; 11:00:10 Wall Stent 16 x 90 ([id number]) was deployed across Undefined1 . 11:11:51 Versed 1 mg I.V. was administered by Acacia Canela RN; for sedation; 11:11:57 Fentanyl 50 mcg I.V. was administered by Acacia Canela RN; for sedation ; 11:23:23 Procedure ended.(Physican Out) 11:23:55 Sharps counted by scrub and verified by R.N. 11:23:59 Insertion/operative site no bleeding no hematoma. 11:24:08 Post-op/insertion site Left Popliteal dressed using a Mepilex dressing. 11:24:14 Post left popliteal vein:stable 11:24:17 Post procedure instruction explained to patient.Patient verbalizes understanding. 11:24:18 Procedure and supply charges have been captured, reviewed, submitted an d are correct. 11:31:46 Contrast amount:Isovue 300 130ml. 11:41:50 Report given to [facility]. 11:41:53 Patient transfered to [facility] with Bed. 11:42:48 Vital chart was stopped Intervention Summary Intervention Notes Time ActionType Lesion and Equipment Used Action# Pressure Duration Attributes 10:18:29 Inflate Undefined1 Evercross 8 x 1 0 00:00 balloon 100 x 135 Balloon ([id number]) 10:45:56 Inflate Undefined1 Evercross 10 x 2 0 00:00 balloon 40 x 135 Balloon ([id number]) 11:00:10 Deploy self Undefined1 Wall Stent 16 x 1 expanding 90 ([id number]) stent Device Usage Item Name Manufacture Quantity Catalog Number Hospital Part Current Minimal Lot# / Charge Number Stock Stock Serial# Code Tegaderm 4 x 4 3M 1 1626W [id number] [id number] 569442 5 (1626W) Sterile Cardinal 1 [id number] 727022 143843 5 Angiographic Health Pack Bag Decanter Microtek 1 475567 48191 575956 5 () Medical Inc. ACIST Manifold Acist 1 21039 904968 346444 551256 5 (32253) [employer] Systems Inc ACIST Hand Acist 1 86756 322309 647102 944878 5 Control (05782) [employer] Inc ACIST Syringe Acist 1 60696 967380 184106 488891 20 (45566) Medical Systems Inc Micropuncture VSI VASCULAR 2 7266V 240735 532755 5 VSI 4FR kit SOLUTIONS DOC .035 wire Cook Medical 1 A92059 186678 391890 5 (Y32336) SHEATH 8FR [facility] [place] 1 744349 106511 958399 906164 5 Kalyan (121348) Cordis 6Fr Cardinal 1 [id number] 870676 585237 5 BRITE TIP 11cm Health sheath GLIDE CATHETER Terumo 1 CG507 371502 962823 5 5FR ANGLED 65cm (CG507) GLIDE WIRE .038 Terumo 1 PU1788 717213 053989 5 180cm ANGLED (KR4215) TORQUE DEVICE [place] 1 TD01 241705 781223 806847 5 PLASTIC .038 ( Scientific TD01) GLIDE WIRE Terumo 1 FM7832 892072 745123 638519 5 Super Stiff Angled 260cm (SD5190) GLIDE CATHETER Terumo 1 CG508 316902 32573 071690 4 5FR ANGLED 100cm (CG508) HANDY 260 wire [employer] 1 N63589 172436 09083 672155 5 [id number] (T63606) Angiojet Power [place] 3 386143-9872 257868 637116 740693 5 Pulse Delivery Scientific Kit Angiojet PROXI [place] 1 833990-698 791642 414110 493335 5 6Fr 90CM Scientific thrombectomy catheter INFLATOR Merit 1 IN1400 280633 957096 885458 5 [id number] Sana [employer] [facility] (XC7854) Evercross 8 x Medtronic 1 [id number] 688008 327519 345377 5 100 x 135 Balloon ([id number]) Zelante 8Fr [place] 1 445396-670 711755 929227 061228 [address] [place] [address] Kalyna 1 193632 848091 096626 5 23CM sheath Evercross 10 x Medtronic 1 [id number] 634023 801321 563246 5 40 x 135 Balloon ([id number]) Wall Stent 16 x [place] 1 [id number] 071262 817808 059004 5 [id number] 90 ([id number]) Scientific Signature Audit [place] Stage Time Signature Unsigned Intra-Procedure 01/29/2018 Yusuf 11:42:45 AM Aubree RT (R) (CV) Signatures Monitor : Yusuf Signature : Aubree RT Date : Time : [id number] [place] [address]
[~2018-01-26 21:45] MED LIST: ELIQUIS5 MG PO; HUMALOG 30100 UNITS/ SC; HYDROCODON-ACE1 EAC7 PO; INSULIN; LISINOPRIL10 MG PO; LOPRESSOR25 MG PO; NEURONTIN800 MG PO; NICODERM C1 PATCH .1 TRANSDERM; SEROQUEL25 MG; SEROQUEL400 MG PO
[2018-01-26 22:48] LABS: BASOPHILS 0.1 % (0-2); EOSINOPHILS 2.4 % (0-7); HEMOGLOBIN 10.5 g/dL (13.5-17.5); IMMATURE GRANULOCYTES 1.2 % (0-5); LYMPHOCYTES 21.7 % (15-50); MCH 29.9 pg (26.0-34.0); MCHC 32.8 g/dL (31.0-37.0); MCV 91.2 fL (80.0-100.0); MONOCYTES 6.4 % (2-11); NEUTROPHILS 68.2 % (40-80); PLATELET COUNT 296 10x3/uL (130-400); RBC 3.51 10x6/uL (4.20-6.10); RDW 14.1 % (11.5-14.5); WBC 16.9 10x3/uL (4.8-10.8)
[2018-01-26 22:57] LABS: APTT 31.5 SECONDS (22.8-39.4); INR 1.35 (0.85-1.17); PROTIME 16.2 SECONDS (11.6-15.0)
[2018-01-26 23:00] LABS: ALBUMIN 2.1 g/dL (3.4-5.0); BILIRUBIN - TOTAL 0.19 mg/dL (0.2-1.3); CALCIUM 7.8 mg/dL (8.5-10.1); CARBON DIOXIDE 26.3 mmol/L (21.0-32.0); CREATININE - SERUM 1.3 mg/dL (0.6-1.3); POTASSIUM - SERUM 4.3 mmol/L (3.5-5.1); PROTEIN - SERUM 7.8 g/dL (6.4-8.2)
[2018-01-27 04:00] VITALS: BP 108/64
[2018-01-27 04:18] VITALS: BP 139/93; BMI 25.4
[2018-01-27 07:00] VITALS: BP 114/76
[2018-01-27 10:33] LABS: BASOPHILS 0.2 % (0-2); EOSINOPHILS 3.2 % (0-7); HEMATOCRIT 31.2 % (42.0-54.0); HEMOGLOBIN 10.1 g/dL (13.5-17.5); IMMATURE GRANULOCYTES 0.8 % (0-5); LYMPHOCYTES 18.7 % (15-50); MCH 29.8 pg (26.0-34.0); MCHC 32.4 g/dL (31.0-37.0); MEAN PLATELET VOLUME 8.8 fL (7.4-10.4); MONOCYTES 7.6 % (2-11); NEUTROPHILS 69.5 % (40-80); PLATELET COUNT 301 10x3/uL (130-400); RBC 3.39 10x6/uL (4.20-6.10); RDW 14.2 % (11.5-14.5); WBC 15.9 10x3/uL (4.8-10.8)
[2018-01-27 12:00] VITALS: BP 119/67
[2018-01-27 20:00] VITALS: BP 134/72
[2018-01-28 04:00] VITALS: BP 120/64
[2018-01-28 05:21] LABS: BASOPHILS 0.1 % (0-2); EOSINOPHILS 1.6 % (0-7); HEMATOCRIT 34.5 % (42.0-54.0); HEMOGLOBIN 11.2 g/dL (13.5-17.5); IMMATURE GRANULOCYTES 0.7 % (0-5); LYMPHOCYTES 19.3 % (15-50); MCHC 32.5 g/dL (31.0-37.0); MCV 92.5 fL (80.0-100.0); MEAN PLATELET VOLUME 8.8 fL (7.4-10.4); NEUTROPHILS 71.3 % (40-80); RBC 3.73 10x6/uL (4.20-6.10); RDW 14.4 % (11.5-14.5); WBC 15.4 10x3/uL (4.8-10.8)
[2018-01-28 05:25] LABS: PLATELET COUNT 395 10x3/uL (130-400)
[2018-01-28 05:32] LABS: ALBUMIN 2.1 g/dL (3.4-5.0); ANION GAP 12.2 mmol/L (8-16); BILIRUBIN - TOTAL 0.25 mg/dL (0.2-1.3); CARBON DIOXIDE 27.7 mmol/L (21.0-32.0); CREATININE - SERUM 1.2 mg/dL (0.6-1.3); POTASSIUM - SERUM 4.9 mmol/L (3.5-5.1)
[2018-01-28 07:45] LABS: APTT 36.4 SECONDS (22.8-39.4)
[2018-01-28 07:46] LABS: PROTIME 13.1 SECONDS (11.6-15.0)
[2018-01-28 07:58] LABS: INR 1.03 (0.85-1.17)
[2018-01-28 09:21] VITALS: BP 124/67
[2018-01-28 13:02] VITALS: Ht 180.3 cm; Wt 79.3 kg
[2018-01-28 15:45] VITALS: BP 119/57
[2018-01-28 16:35] VITALS: BP 120/72
[2018-01-28 18:53] LABS: UDS - AMPHET NEGATIVE QUAL (NEGATIVE); UDS - BARB NEGATIVE QUAL (NEGATIVE); UDS - BENZO POSITIVE QUAL (NEGATIVE); UDS - COCAINE NEGATIVE QUAL (NEGATIVE); UDS - OPIATE POSITIVE QUAL (NEGATIVE); UDS - PCP NEGATIVE QUAL (NEGATIVE); UDS - THC NEGATIVE QUAL (NEGATIVE)
[2018-01-28 20:00] VITALS: BP 109/68
[2018-01-29] VITALS (9 sets, daily range): BP systolic 95–137; BP diastolic 55–90
[2018-01-29 05:40] LABS: BASOPHILS 0.1 % (0-2); EOSINOPHILS 1.6 % (0-7); HEMATOCRIT 32.6 % (42.0-54.0); HEMOGLOBIN 10.5 g/dL (13.5-17.5); IMMATURE GRANULOCYTES 0.6 % (0-5); LYMPHOCYTES 18.7 % (15-50); MCH 29.4 pg (26.0-34.0); MCHC 32.2 g/dL (31.0-37.0); MCV 91.3 fL (80.0-100.0); MEAN PLATELET VOLUME 9.1 fL (7.4-10.4); MONOCYTES 7.5 % (2-11); NEUTROPHILS 71.5 % (40-80); PLATELET COUNT 365 10x3/uL (130-400); RBC 3.57 10x6/uL (4.20-6.10); RDW 14.6 % (11.5-14.5)
[2018-01-29 06:01] LABS: ANION GAP 14.5 mmol/L (8-16); BILIRUBIN - TOTAL 0.33 mg/dL (0.2-1.3); CALCIUM 7.9 mg/dL (8.5-10.1); CARBON DIOXIDE 27.3 mmol/L (21.0-32.0); CREATININE - SERUM 1.2 mg/dL (0.6-1.3); POTASSIUM - SERUM 4.8 mmol/L (3.5-5.1)
[2018-01-29 10:21] LABS: CEA 8.9 ng/mL (0.0-4.7)
[2018-01-29 14:23] LABS: ALPHA FETOPROTEIN -(TUMOR MRK) 1.3 ng/mL (0.0-8.3)
[2018-01-30 05:05] LABS: BASOPHILS 0.1 % (0-2); EOSINOPHILS 0 % (0-7); HEMATOCRIT 30.1 % (42.0-54.0); HEMOGLOBIN 10.3 g/dL (13.5-17.5); IMMATURE GRANULOCYTES 0.5 % (0-5); MCH 30.8 pg (26.0-34.0); MCHC 34.2 g/dL (31.0-37.0); MCV 90.1 fL (80.0-100.0); MEAN PLATELET VOLUME 8.7 fL (7.4-10.4); MONOCYTES 5.7 % (2-11); NEUTROPHILS 85.7 % (40-80); PLATELET COUNT 311 10x3/uL (130-400); RBC 3.34 10x6/uL (4.20-6.10); RDW 14.1 % (11.5-14.5); WBC 14.3 10x3/uL (4.8-10.8)
[2018-01-30 05:26] LABS: ALBUMIN 1.9 g/dL (3.4-5.0); ALKALINE PHOSPHATASE 138 U/L (46-116); ALT (SGPT) 12 U/L (10-68); BILIRUBIN - TOTAL 0.25 mg/dL (0.2-1.3); CALCIUM 7.7 mg/dL (8.5-10.1); CARBON DIOXIDE 25.6 mmol/L (21.0-32.0); CHLORIDE - SERUM 97 mmol/L (98-107); CREATININE - SERUM 0.9 mg/dL (0.6-1.3); POTASSIUM - SERUM 4.7 mmol/L (3.5-5.1); PROTEIN - SERUM 6.9 g/dL (6.4-8.2); SODIUM 132 mmol/L (136-145); UREA NITROGEN 14 mg/dL (7-18); eGFR NON AFRICAN AMERICAN > 90 mL/min (90-120)
[2018-01-30 05:27] LABS: CALC OSMOLALITY 276 mosm/kg (275-300); GLUCOSE 296 mg/dL (74-106)
[2018-01-30 05:42] VITALS: BP 107/66
[2018-01-30 07:22] VITALS: BP 120/77
[2018-01-30 12:44] VITALS: BP 138/98
[2018-01-30 15:05] VITALS: BP 120/74
[2018-01-30 20:56] VITALS: BP 107/59
[2018-01-31 05:36] LABS: ALBUMIN 1.9 g/dL (3.4-5.0); BILIRUBIN - TOTAL 0.19 mg/dL (0.2-1.3); CALCIUM 7.9 mg/dL (8.5-10.1); CARBON DIOXIDE 27.2 mmol/L (21.0-32.0); PROTEIN - SERUM 7.5 g/dL (6.4-8.2)
[2018-01-31 05:47] LABS: HEMATOCRIT 31.5 % (42.0-54.0); HEMOGLOBIN 10.2 g/dL (13.5-17.5); MCH 29.7 pg (26.0-34.0); MCHC 32.4 g/dL (31.0-37.0); MCV 91.6 fL (80.0-100.0); MEAN PLATELET VOLUME 9.4 fL (7.4-10.4); PLATELET COUNT 371 10x3/uL (130-400); RBC 3.44 10x6/uL (4.20-6.10); RDW 14.1 % (11.5-14.5)
[2018-01-31 06:09] VITALS: BP 119/77
[2018-01-31 06:27] LABS: ANION GAP 12.5 mmol/L (8-16); CREATININE - SERUM 1.2 mg/dL (0.6-1.3); POTASSIUM - SERUM 5.7 mmol/L (3.5-5.1)
[2018-01-31 06:55] LABS: LYMPHOCYTES 12 % (15-50); MONOCYTES 6 % (2-11); NEUTROPHILS 80 % (40-80)
[2018-01-31 06:56] LABS: PLATELET ESTIMATE NORMAL
[2018-01-31 07:53] VITALS: BP 104/64
[2018-01-31] MEDS ORDERED: Nicoderm [PBKC] TRANSDERM (10:11)
== END 2018-01-31 11:35 | disposition home or self-care (01) | DRG 270 ==
LOC: D.ER 21:45 → D.EDHOLD 23:07 → D.M2 23:07
PROVIDERS: Emergency Medicine; Family Medicine; Internal Medicine Hematology & Oncology; Internal Medicine Nephrology; Specialist
PROC: 0W993ZZ Drainage of Right Pleural Cavity, Percutaneous Approach (ICD-10-PCS; principal; 2018-01-28 14:30)
PROC: 06CD3ZZ Extirpation of Matter from Left Common Iliac Vein, Percutaneous Approach (ICD-10-PCS; 2018-01-29)
PROC: 067D3DZ Dilation of Left Common Iliac Vein with Intraluminal Device, Percutaneous Approach (ICD-10-PCS; 2018-01-29)
PROC: 0JH63XZ Insertion of Tunneled Vascular Access Device into Chest Subcutaneous Tissue and Fascia, Percutaneous Approach (ICD-10-PCS; 2018-01-30)
PROC: 02HV33Z Insertion of Infusion Device into Superior Vena Cava, Percutaneous Approach (ICD-10-PCS; 2018-01-30)
PROC: B5181ZA Fluoroscopy of Superior Vena Cava using Low Osmolar Contrast, Guidance (ICD-10-PCS; 2018-01-30)
DX: I82.422 Acute embolism and thrombosis of left iliac vein (principal); I26.99 Other pulmonary embolism without acute cor pulmonale; F17.213 Nicotine dependence, cigarettes, with withdrawal; C34.90 Malignant neoplasm of unspecified part of unspecified bronchus or lung; C79.51 Secondary malignant neoplasm of bone; C79.31 Secondary malignant neoplasm of brain; Z79.01 Long term (current) use of anticoagulants; E11.9 Type 2 diabetes mellitus without complications

== ENCOUNTER 2018-02-02 22:22 | Inpatient (IN) | payer MEDICARE, MEDICAID ==
[~2018-02-02] VITALS: Ht 180.3 cm; Wt 77.2 kg
[~2018-02-02 22:22] MED LIST changes: +Nicoderm [PBKC] TRANSDERM
[2018-02-03 01:51] VITALS: BP 138/83
[2018-02-03 08:20] VITALS: BP 124/84
[2018-02-03 11:36] VITALS: BP 122/84
[2018-02-03 12:55] VITALS: Ht 180.3 cm; Wt 77.2 kg
[2018-02-03 14:50] LABS: BASOPHILS 0.1 % (0-2); EOSINOPHILS 0.3 % (0-7); HEMATOCRIT 35.2 % (42.0-54.0); HEMOGLOBIN 11.5 g/dL (13.5-17.5); IMMATURE GRANULOCYTES 0.9 % (0-5); LYMPHOCYTES 15.7 % (15-50); MCH 29.6 pg (26.0-34.0); MCHC 32.7 g/dL (31.0-37.0); MCV 90.7 fL (80.0-100.0); MEAN PLATELET VOLUME 9.2 fL (7.4-10.4); MONOCYTES 6.6 % (2-11); NEUTROPHILS 76.4 % (40-80); PLATELET COUNT 343 10x3/uL (130-400); RBC 3.88 10x6/uL (4.20-6.10); WBC 18.8 10x3/uL (4.8-10.8)
[2018-02-03 14:58] LABS: APTT 20.5 SECONDS (22.8-39.4); INR 1.01 (0.85-1.17); PROTIME 12.9 SECONDS (11.6-15.0)
[2018-02-03 15:11] LABS: ALBUMIN 2.4 g/dL (3.4-5.0); ALKALINE PHOSPHATASE 150 U/L (46-116); ALT (SGPT) 17 U/L (10-68); BILIRUBIN - TOTAL 0.22 mg/dL (0.2-1.3); CALC OSMOLALITY 287 mosm/kg (275-300); CALCIUM 8.3 mg/dL (8.5-10.1); CARBON DIOXIDE 27.4 mmol/L (21.0-32.0); CHLORIDE - SERUM 93 mmol/L (98-107); MAGNESIUM - SERUM 1.9 mg/dL (1.8-2.4); PROTEIN - SERUM 7.5 g/dL (6.4-8.2); SODIUM 131 mmol/L (136-145); UREA NITROGEN 22 mg/dL (7-18); eGFR NON AFRICAN AMERICAN 84 mL/min (90-120)
[2018-02-03 15:18] LABS: GLUCOSE 499 mg/dL (74-106)
== END 2018-02-03 16:14 | disposition home or self-care (01) | DRG 300 ==
LOC: D.M2 22:22
PROVIDERS: Internal Medicine Nephrology
DX: I82.502 Chronic embolism and thrombosis of unspecified deep veins of left lower extremity (principal); C79.31 Secondary malignant neoplasm of brain; F17.213 Nicotine dependence, cigarettes, with withdrawal; I10 Essential (primary) hypertension; B19.20 Unspecified viral hepatitis C without hepatic coma; E11.9 Type 2 diabetes mellitus without complications; F32.9 Major depressive disorder, single episode, unspecified; Z79.01 Long term (current) use of anticoagulants

== ENCOUNTER 2018-02-18 08:43 | Inpatient (IN) | payer MEDICARE, MEDICAID ==
[~2018-02-18] VITALS: Ht 180.3 cm; Wt 59.4 kg
--- NOTE | ~2018-02-18 | EC ---
PATIENT:GONSALO KRAUSE DATE OF SERVICE: 02/18/18 SEX: M MEDICAL RECORD: [id number] DATE OF : 69 LOCATION:D.M2 D.212 AGE OF PATIENT: 52 ADMISSION DATE: 02/18/18 REFERRING PHYSICIAN: INTERPRETING PHYSICIAN: MINAL WICK MD ECHOCARDIOGRAM REPORT ECHO CHARGES 4 ECHO COMPLETE Date: 02/19/18 CLINICAL DIAGNOSIS: BILATERAL PE'S ECHOCARDIOGRAPHIC MEASUREMENTS (adult normal given) AC root (d.<3.7cm) 3.2 cm LV Septum d (<1.2 cm> 1.4 cm Valve Excursion 1.4 cm LV Septum (systole) 1.5 cm Left Atria (s.<4.0cm> 3.6 cm LVPW d(<1.2cm) 1.5 cm RV (d.<2.3cm) 3.0 cm LVPW (sytole) 1.6 cm LV diastole(<5.6CM) 3.89 cm MV E-F(>70mm/sec) cm LV systole 2.6 cm LVOT Diameter 1.9 cm MV exc.(>10mm) 1.4 cm Est.ejection fraction (50-75%) % DOPPLER: LVIT cm/sec A 114 cm/sec E 81.0 cm/sec LA cm/sec RVSP 27 mmHg LVOT 100 cm/sec AOP1/2T m/s Asc. Ao 149 cm/sec RVOT 101 cm/sec RA cm/sec PA 153 cm/sec AV Gradient Peak 8.89 mmHg AV Mean 4.96 mmHg AV Area 1.6 cm MV Gradient Peak 5.60 mmHg MV Mean 2.66 mmHg MV Area cm COMMENTS: Marketing Support Coordinator: Mal HENRY Manufacturing Operator: Frederick Gimenez TAPE# PACS Pericardial Effusion N DATE OF SERVICE: 02/19/2018 FINDINGS: 1. Left ventricular chamber size is within normal limits. Left ventricular systolic function is normal. Overall ejection fraction estimated at 60%. 2. Left atrium, right atrium, and right ventricle chamber size is within normal limits. 3. Valvular structures have normal structure and motion. 4. Doppler interrogation only reveals trace tricuspid regurgitation. No other valvular insufficiency or stenosis. ECHOCARDIOGRAM REPORT [id number] GONSALO KARUSE 5. No evidence of pericardial effusion or left ventricular thrombus. TRANSINT:[id number] Voice Confirmation ID: [id number] DOCUMENT ID: [id number] MINAL WICK MD at 0924 CC: [id number] DICTATION DATE: 02/20/18 1639 INDUSTRIAL COOK: 02/20/18 1755 DIS IN 02/28/18 [place] [id number] [place] [id number]
--- NOTE | ~2018-02-18 | HEMODYNAMI ---
PATIENT:GONSALO KRAUSE MEDICAL RECORD: [id number] : 69 LOCATION:[address] ADMISSION DATE: 02/18/18 Generatedon:02/20/201816:46 Patient name: GONSALO KRAUSE Patient #: [id number] SSN: DO B: 1965 Date of study: 02/20/2018 Page: Of Hemodynamic Procedure Report Patient Data Patient Demographics Procedure consent was obtained First Name: GONSALO Gender: Male Last Name: JIMI : 1965 Patient #: [id number] Age: 52 year(s) Race: Unknown Additional ID: [id number] Contact details Address: [address] [place] [address] State: [place] City: [place] Zip code: [address] Past Medical History Allergies: No known allergies Admission Admission Data Admission Date: 02/18/2018 Admission Time: 10:48 Room [facility] Height (in.): 71 BSA: 1.97 (m2) Height (cm.): 180.34 BMI: 23.85 (kg/m2) Weight (lbs.): 171 Weight (kg.): 77.56 Procedure Procedure Types Cath Procedure Peripheral Cath Diagnostic Procedure Manager Scientific Peripheral Procedures Venography Extremity Left Lower Ext. Venagram IVC/SVC Inferior Venacava Filter Procedure Description Procedure Date Procedure Date: 02/20/2018 Procedure Start Time: 16:29 Procedure Staff Name Function Favian Still MD Performing Physician Margie Heck RT Bale Stacker Tierra Martinez RN Nurse Acacia Canela RN Nurse Yusuf Mak RT Scrub Procedure Data Cath Procedure Fluoroscopy Diagnostic fluoroscopy Total fluoroscopy Time: 1.2 time: 1.2 min min Diagnostic fluoroscopy Total fluoroscopy dose: 111 dose: 111 mGy mGy Contrast Material Contrast Material Type Amount (ml) Isovue 300 40 Diagnostic catheters Device Type Used For End Catheter Placement Merit UHF Pigtail VESSEL SIZING 5Fr 65CM catheter ([id number]) Procedure Medications Medication Administration Route Dosage Lidocaine 1% added to field 20 Heparin Flush Bag added to field 4 bags (1000units/500ml NS) Hemodynamics Rest BSA: 1.97 (m2) O2 Consumption: Estimated: 267.92 (ml/min) O2 Consumption indexed : Estimated:136 (ml/min/m) Pre Cath Intra NCS Post Cath Medications Time Medication Route Dose Verified Delivered Reason Notes Effec tiveness by by 16:32:06 Lidocaine 1% added 20ml Favian Ballesteros used for to vial Cheko Still MD procedure field 16:32:25 Heparin Flush added 4 Favian Ballesteros used for Bag to bags Cheko Still MD procedure (1000units/500ml field NS) Procedure Log Time Note 15:38:09 Patient Height : 71 inches 15:38:14 Patient Weight : 171 lbs 15:54:21 Use device set IR Diagnostic 15:54:26 Tegaderm 4 x 4 (1626W) opened to sterile field. 15:54:27 Sterile Angiographic Pack opened to sterile field. 15:54:27 Bag Decanter (2002S) opened to sterile field. 15:54:28 ACIST Manifold (93919) opened to sterile field. 15:54:29 ACIST Hand Control (47617) opened to sterile field. 15:54:31 ACIST Syringe (15310) opened to sterile field. 15:55:10 SHEATH 5FR [place] (CGV132) opened to sterile field. 15:55:11 Micropuncture VSI 4FR kit opened to sterile field. 15:55:13 DOC .035 wire (O24663) opened to sterile field. 15:55:14 TUBING Contrast Injection High Pressure (DUW446I) opened to sterile field. 15:55:15 TUBING Contrast Injection High Pressure (FEO693I) opened to sterile field. 15:55:39 - 15:59:53 Time tracking: Regular hours (M-F 7:00 - 5:00) 16:00:18 Patient received from Med II to IR Alert and oriented. Tansferred to table in Supine position. 16:01:04 Correct patient and procedure confirmed by team. 16:01:07 Signed procedure consent form obtained from patient. 16:01:10 Warm blankets applied, and susie hugger turned on for patient comfort. 16::27 H&P Date Dictated: 02/20/2018 Within 30 days and on chart.. 16:02:21 Pre-procedure instructions explained to patient. 16:02:22 Pre-op teaching completed and patient verbalized understanding. 16:02:25 Family in waiting room. 16::27 Patient NPO since Midnight. 16:02:38 Patient allergic to No known allergies 16:02:43 Is the patient allergic to Iodine/contrast media? No. 16:02:51 Is patient on blood thinner?Yes 16:02:57 - 16:03:12 IV patent on arrival in right hand with D5/.45%NaCl at KVO. 16:03:16 - 16:03:20 ----Pre-sedation anethsthesia assessment.----see anesthesia notes for monitoring of patient during procedure 16:03:55 - 16:28:08 Physician arrived 16:28:13 --------ALL STOP TIME OUT------ 16:28:14 Final Timeout: patient, procedure, and site verified with staff and physician. All members of the team are in agreement. 16:29:44 Procedure started. 16:29:45 Full Disclosure recording started 16:29:50 Local anesthetic to right IJ vein with Lidocaine 1% by Favian Still MD.INITIAL ACCESS ONLY 16:30:19 A Merit [facility] Pigtail VESSEL SIZING 5Fr 65CM catheter ([id number]) was advanced over the wire and used for . 16:32:06 Lidocaine 1% 20ml vial added to field was administered by Favian Still MD; used for procedure; 16:32:22 AMPLATZ Super stiff 180cm wire ([id number]) opened to sterile field. 16:32:25 Heparin Flush Bag (1000units/500ml NS) 4 bags added to field was administered by Favian Still MD; used for procedure; 16:38:53 Venogram performed 16:38:59 Michelle Jugular IVC filter was placed below renal veins. 16:44:30 Procedure ended.(Physican Out) 16:44:37 Fluoroscopy time 01.20 minutes. 16:44:45 Fluoroscopy dose: 111 mGy 16:44:45 Flurop Dose total: 111 16:44:52 Contrast amount:Isovue 300 40ml. 16:44:55 Procedure and supply charges have been captured, reviewed, submitted an d are correct. Device Usage Item Name Manufacture Quantity Catalog Hospital Part [facility] l Lot# / Number Charge Number Stock Stock Serial# Code Tegaderm 4 x 3M 1 1626W [id number] 111946 612083 5 4 (1626W) Sterile Cardinal 1 [id number] 708957 833058 5 Angiographic Health Pack Bag Decanter Microtek 1 450807 51569 511923 5 () Medical Inc. ACIST Acist 1 73531 530517 239458 172599 5 Manifold Medical (47603) Systems Inc ACIST Hand Acist 1 24320 117655 214319 627677 5 Control Medical (99453) Systems Inc ACIST Syringe Acist 1 22544 300237 984827 487966 20 (84377) Medical Systems Inc SHEATH 5FR Terumo 1 PMG095 712966 062251 487465 40 [place] (WAX236) Micropuncture VSI VASCULAR 1 7266V 513998 105154 5 VSI 4FR kit SOLUTIONS DOC .035 wire SalesVu [employer] 1 Z49617 182919 289307 5 (V95069) TUBING Merit 2 [id number] 060272 873715 996896 5 Contrast Medical Injection High Pressure (CQJ853Q) Merit F Merit 1 7602-20M83 794425 943971 5 Pigtail Medical VESSEL SIZING 5Fr 65CM catheter (130401G24) AMPLATZ Super [place] 1 [id number] 835217 005087 829061 5 stiff 180cm Scientific wire ([id number]) Signature Audit [place] Stage Time Signature Unsigned Intra-Procedure 02/20/2018 Margie Heck 4:46:08 PM RT(R) [facility] [address] [place] [address]
--- NOTE | ~2018-02-18 | CN ---
PATIENT NAME:GONSALO RAMIREZ MEDICAL RECORD: [id number] : 69 LOCATION:[address] ADMIT DATE: 02/18/18 ACCOUNT: [id number] CONSULTING PHYSICIAN: CHRISTIANO BIRD MD REFERRING PHYSICIAN: DEANGELO JUAN MD DATE OF CONSULTATION: 02/18/2018 CONSULT REQUESTING PHYSICIAN: Deangelo Juan MD REASON FOR CONSULTATION: Bilateral PE, DVT, pleural effusion. HISTORY OF PRESENT ILLNESS: Mr. Ramirez is a 52-year-old gentleman who has a history of CA of the lung. Now, he is getting radiation therapy. He has got 10 radiations so far. The patient came into the ER with pain and swelling of the left lower extremity. The patient was admitted 2 weeks ago. He underwent thrombectomy by the IR. The patient was on Eliquis, but the swelling and pain started again. Ultrasound confirmed occlusive DVT. CTA confirmed bilateral PE with pleural effusion. There is mild chest pain, which is pleuritic in nature, on the left side. REVIEW OF THE SYSTEMS: As in history of present illness. PAST MEDICAL HISTORY: 1. CA of the lung. 2. DVT. 3. Diabetes mellitus. PAST SURGICAL HISTORY: Back surgery in 2006. ALLERGY: No known drug allergy. MEDICATIONS: [employer] was reviewed. PERSONAL AND SOCIAL HISTORY: The patient still continues to smoke. He is nondrinker. FAMILY HISTORY: Noncontributory. PHYSICAL EXAMINATION: GENERAL: Now, the patient is lying comfortably in bed. He is not in acute distress. VITAL SIGNS: The blood pressure is 113/66, pulse is 115, respiration is 19, temperature 97.8, SpO2 93% on room air. HEENT: Conjunctivae are pale. Sclerae are not icteric. NECK: Neck is supple. No JVD. CHEST: There is a crackle on the right side. No wheezing. HEART: Rate and rhythm regular. Normal heart sound. No murmur. ABDOMEN: Abdomen is soft. Bowel sounds present. No hepatosplenomegaly. RECTAL: Deferred. EXTREMITIES: There is 2+ pedal edema and tenderness to touch. CENTRAL NERVOUS SYSTEM: The patient is awake and alert. There is no obvious cranial nerve abnormality. The gait was not tested. LABORATORY DATA: CBC; WBC 18.7, hemoglobin 10.5, hematocrit 33.1, and platelet count 160. Chemistry; sodium 130, potassium 5.1, BUN is 30, and creatinine is CONSULT REPORT [id number] GONSALO RAMIREZ 1. ABG on admission; the pH was 7.49, pCO2 was 32.7, pO2 was 79, and bicarb was 25.4. D-dimer is 11.20. DIAGNOSTIC DATA: Ultrasound of the lower extremities shows occlusive thrombus of the left lower extremity. CTA shows that there is bilateral PE and there is right-sided pleural effusion. 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 IMPRESSION: 1. Pulmonary embolism, bilateral. 2. DVT, left lower extremity. 3. CA of the lung. 4. Right pleural effusion. 5. Leukocytosis, most likely secondary to DVT. RECOMMENDATION: 1. We will continue the heparin. Check the cardiac echo. If there is right ventricular strain, we will consider the IVC filter. 2. Followup labs and chest radiograph. Dr. Juan, thank you for involving me in the care of Mr. Ramirez. TRANSINT:[id number] Voice Confirmation ID: [id number] DOCUMENT ID: [id number] CHRISTIANO BIRD MD at 1301 CC: [id number] DICTATION DATE: 02/18/18 1626 ACID BATH MIXER: 02/18/18 1714 ADM [place] [id number] [place] [id number]
--- NOTE | ~2018-02-18 | HEMODYNAMI ---
PATIENT:GONSALO KRAUSE MEDICAL RECORD: [id number] : 69 LOCATION:[address] ADMISSION DATE: 02/18/18 Generatedon:02/20/201819:06 Patient name: GONSALO KRAUSE Patient #: [id number] SSN: DO B: 1965 Date of study: 02/20/2018 Page: Of Hemodynamic Procedure Report Patient Data Patient Demographics Procedure consent was obtained First Name: GONSALO Gender: Male Last Name: JIMI : 1965 Patient #: [id number] Age: 52 year(s) Race: Unknown Additional ID: [id number] Contact details Address: [address] [place] [address] State: [place] City: [place] Zip code: [address] Past Medical History Allergies: No known allergies Admission Admission Data Admission Date: 02/18/2018 Admission Time: 10:48 Room #: [facility]9 Height (in.): 71 BSA: 1.97 (m2) Height (cm.): 180.34 BMI: 23.85 (kg/m2) Weight (lbs.): 171 Weight (kg.): 77.56 Procedure Procedure Types Cath Procedure Peripheral Cath Diagnostic Procedure Bulk Station Agent Peripheral Procedures Venography Extremity Left Lower Ext. Venagram Procedure Description Procedure Date Procedure Date: 02/20/2018 Procedure Start Time: 17:08 Procedure Staff Name Function Favian Still MD Performing Physician Margie Heck RT Junior Legal Secretary Cooper Sanches CRNA Additional personnel Tierra Martinez RN Nurse Yusuf Mak RT Scrub Procedure Data Cath Procedure Fluoroscopy Diagnostic fluoroscopy Total fluoroscopy Time: 8.6 time: 8.6 min min Diagnostic fluoroscopy Total fluoroscopy dose: 973 dose: 973 mGy mGy Contrast Material Contrast Material Type Amount (ml) Isovue 300 130 Procedure Medications Medication Administration Route Dosage 0.9% NaCl I.V. 1000 ml Heparin Bolus I.V. 3000 units unlisted medication Heparin Bolus I.V. 2000 units Hemodynamics Rest BSA: 1.97 (m2) O2 Consumption: Estimated: 267.92 (ml/min) O2 Consumption indexed : Estimated:136 (ml/min/m) Pre Cath Intra NCS Post Cath Medications Time Medication Route Dose Verified Delivered Reason Notes Effecti veness by by 17:10:27 0.9% NaCl I.V. 1000 ml Favian Mayorga Per Juan Still RN protocol 17:39:54 Heparin I.V. 3000units Favian Mayorga Per Bolus Juan Still RN protocol 17:46:46 ACTIVASE Cheko Giordano MD MD 18:21:16 Heparin I.V. 2000 Favian Ballesteros Per Bolus units Cheko Still MD protocol Procedure Log Time Note 16:50:00 Patient Height : 71 inches 16:50:00 Patient Weight : 171 lbs 16:50:12 Time tracking: Regular hours (M-F 7:00 - 5:00) 16:50:27 Plan of Care:Hemodynamics will remain stable., Cardiac rhythm will remain stable., Comfort level will be maintained., Respiratory function will remain adequate., Patient/ family verbilizes understanding of procedure., Procedure tolerated without complication., Recovers from procedure without complications.. 16:50:35 Patient received from [employer] II to IR Alert and oriented. Tansferred to table in Prone position. 16:50:37 Correct patient and procedure confirmed by team. 16:50:40 Signed procedure consent form obtained from patient. 16:50:48 H&P Date Dictated: 02/20/2018 Within 30 days and on chart.. 16:50:49 Pre-procedure instructions explained to patient. 16:50:50 Pre-op teaching completed and patient verbalized understanding. 16:50:52 Family in waiting room. 16:50:54 Patient NPO since Midnight. 16:51:01 Patient allergic to No known allergies 16:51:08 Is patient on blood thinner?Yes 16:51:10 - 16:51:11 ----Pre-sedation anethsthesia assessment.----see anesthesia notes for monitoring of patient during procedure 16:51:34 - 16:51:48 Popliteal region area was prepped with chlora-prep and draped in steril e fashion 16:51:51 - 17:07:44 Physician arrived 17:07:45 --------ALL STOP TIME OUT------ 17:07:47 Final Timeout: patient, procedure, and site verified with staff and physician. All members of the team are in agreement. 17:08:08 Procedure started. 17:08:09 Full Disclosure recording started 17:08:55 Local anesthetic to left popliteal vein with Lidocaine 1% by Favian Still MD.INITIAL ACCESS ONLY 17:10:27 0.9% NaCl 1000 ml I.V. was administered by Tierra Martinez RN; Per protocol; 17:13:23 GLIDE CATHETER 5FR ANGLED 65cm (CG507) opened to sterile field. 17:13:24 Micropuncture VSI 4FR kit opened to sterile field. 17:35:09 TORQUE DEVICE PLASTIC .038 ( TD01) opened to sterile field. 17:35:10 GLIDE WIRE Angled Super Stiff 180cm (BM4052) opened to sterile field. 17:35:11 Cordis 6Fr BRITE TIP 11cm sheath opened to sterile field. 17:35:12 HANDY 260 wire (Y39964) opened to sterile field. 17:38:[address] [place] (874964) opened to sterile field. 17:39:54 Heparin Bolus 3000units I.V. was administered by Tierra Martinez RN; Per protocol; 17:46:46 ACTIVASE was administered by Favian Still MD; ; 17:47:26 Zelante 8Fr Angiojet catheter opened to sterile field. 18:20:25 INFLATOR BasixTOUCH (JA8667) opened to sterile field. 18:21:16 Heparin Bolus 2000 units I.V. was administered by Favian Still MD; Per protocol; 18:21:52 Inflate balloon Inflation number: 1 A Ever[place] 8 x 8 x 135 Balloon ([id number]) was prepped and advanced across the Undefined1, then inflated. 18:36:24 Inflate balloon Inflation number: 2 A [place] 10 x 40 x 135 Balloon ([id number]) was prepped and advanced across the Undefined1, then inflated to 0 ALLISON for 0:00 (min:sec). 18:45:12 Inflate balloon Inflation number: 3 A ATLAS 14 x 4 x 75CM balloon ([id number]) was prepped and advanced across the Undefined1, then inflated. 18:56:04 Procedure ended.(Physican Out) 18:56:31 Fluoroscopy time 08.60 minutes. 18:56:37 Fluoroscopy dose: 973 mGy 18:56:37 Flurop Dose total: 973 18:56:49 Contrast amount:Isovue 300 130ml. 18:56:52 Procedure and supply charges have been captured, reviewed, submitted an d are correct. 18:58:49 Report given to [employer]. Intervention Summary Intervention Notes Time ActionType Lesion and Equipment Used Action# Pressure Duration Attributes 18:21:52 Inflate Undefined1 Evercross 8 x 6 1 0 00:00 balloon x 135 Balloon ([id number]) 18:36:24 Inflate Undefined1 Evercross 10 x 2 0 00:00 balloon 40 x 135 Balloon ([id number]) 18:45:12 Inflate Undefined1 ATLAS 14 x 4 x 3 0 00:00 balloon 75CM balloon ([id number]) Device Usage Item Name Manufacture Quantity Catalog Number Hospital Part Current M inimal Lot# / Charge Number Stock Stock Serial# Code GLIDE CATHETER Terumo 1 [id number] 784958 799328 5 5FR ANGLED 65cm (CG507) Micropuncture VSI VASCULAR 1 7266V 092371 802683 5 VSI 4FR kit SOLUTIONS TORQUE DEVICE [place] 1 TD01 315590 755574 151813 5 PLASTIC .038 ( Scientific TD01) GLIDE WIRE Terumo 1 [id number] 408228 643404 5 Angled Super Stiff 180cm (XY0102) Cordis 6Fr Cardinal 1 [id number] 090272 628207 5 BRITE TIP 11cm Health sheath HANDY 260 wire Cook Medical 1 T32514 158794 96110 532896 5 (P12535) SHEATH 8FR [facility] [place] 1 219928 779219 994669 198333 5 [place] (745954) Zelante 8Fr [place] 1 625082-691 811624 418124 393540 5 AngioFX Bridge catheter INFLATOR Merit 1 WT0771 131497 259445 654831 5 [employer] (UC8032) Evercross 8 x 6 Medtronic 1 [id number] 575702 692090 137053 5 [id number] x 135 Balloon ([id number]) Evercross 10 x Medtronic 1 [id number] 818556 829804 875803 5 [id number] 40 x 135 Balloon ([id number]) ATLAS 14 x 4 x Bard 1 [id number] 543922 192368 795380 5 75CM balloon ([id number]) Signature Audit [place] Stage Time Signature Unsigned Intra-Procedure 02/20/2018 Margie Heck 7:06:22 PM RT(R) [place] [address] [place] [address]
[2018-02-18 09:56] LABS: BASOPHILS 0.1 % (0-2); EOSINOPHILS 0 % (0-7); HEMATOCRIT 33.1 % (42.0-54.0); HEMOGLOBIN 10.5 g/dL (13.5-17.5); IMMATURE GRANULOCYTES 0.5 % (0-5); LYMPHOCYTES 3.6 % (15-50); MCH 29.7 pg (26.0-34.0); MCHC 31.7 g/dL (31.0-37.0); MCV 93.5 fL (80.0-100.0); MEAN PLATELET VOLUME 10.3 fL (7.4-10.4); NEUTROPHILS 90.8 % (40-80); RBC 3.54 10x6/uL (4.20-6.10); RDW 17.6 % (11.5-14.5); WBC 18.7 10x3/uL (4.8-10.8)
[2018-02-18 10:15] LABS: PLATELET COUNT 160 10x3/uL (130-400)
[2018-02-18 10:20] LABS: APTT 20.8 SECONDS (22.8-39.4); INR 0.97 (0.85-1.17); PROTIME 12.5 SECONDS (11.6-15.0)
[2018-02-18 10:24] LABS: ALKALINE PHOSPHATASE 171 U/L (46-116); ALT (SGPT) 15 U/L (10-68); BILIRUBIN - TOTAL 0.46 mg/dL (0.2-1.3); CALCIUM 8.4 mg/dL (8.5-10.1); CARBON DIOXIDE 23.2 mmol/L (21.0-32.0); CHLORIDE - SERUM 93 mmol/L (98-107); POTASSIUM - SERUM 5.1 mmol/L (3.5-5.1); PROTEIN - SERUM 6.3 g/dL (6.4-8.2); SODIUM 130 mmol/L (136-145); UREA NITROGEN 30 mg/dL (7-18); eGFR NON AFRICAN AMERICAN 84 mL/min (90-120)
[2018-02-18 10:29] LABS: CALC OSMOLALITY 302 mosm/kg (275-300)
[2018-02-18 10:31] LABS: GLUCOSE 750 mg/dL (74-106)
[2018-02-18 10:34] LABS: D-DIMER-QUANTITATIVE 11.2 ug/mLFEU (0.20-0.54)
[2018-02-18 11:42] LABS: APPEARANCE CLEAR (CLEAR); COLOR YELLOW (YELLOW); GLUCOSE 1000 mg/dL (NEGATIVE); NITRITE NEGATIVE (NEGATIVE); PROTEIN NEGATIVE (NEGATIVE); UDS - AMPHET NEGATIVE QUAL (NEGATIVE); UDS - BARB NEGATIVE QUAL (NEGATIVE); UDS - BENZO NEGATIVE QUAL (NEGATIVE); UDS - COCAINE NEGATIVE QUAL (NEGATIVE); UDS - OPIATE POSITIVE QUAL (NEGATIVE); UDS - PCP NEGATIVE QUAL (NEGATIVE); UDS - THC NEGATIVE QUAL (NEGATIVE)
[2018-02-18 11:43] LABS: BACTERIA NONE SEEN /hpf (NONE SEEN); BILIRUBIN NEGATIVE (NEGATIVE); EPITHELIAL CELLS NSEEN /hpf (0-5); KETONE NEGATIVE (NEGATIVE); RED CELLS - URINE NONE SEEN /hpf (0-5); UROBILINOGEN NORMAL (NORMAL); WHITE CELLS - URINE NSEEN /hpf (0-5)
[2018-02-18 12:47] VITALS: BP 113/66; BMI 23.7
[2018-02-18] MEDS ORDERED: HUMALOG 30100 UNITS/ SC (13:44)
[2018-02-18] MEDS ORDERED: DILAUDID8 MG (13:47)
[2018-02-18] MEDS ORDERED: ELIQUIS5 MG PO (14:34)
[2018-02-18] MEDS ORDERED: DILAUDID2 MG PO (14:44)
[2018-02-18] MEDS ORDERED: MORPHINE SULFAT15 M4 PO (14:51)
[2018-02-18] MEDS ORDERED: DECADRON4 MG PO (14:52)
[2018-02-18] MEDS ORDERED: SONATA5 MG PO (14:55)
[2018-02-18 15:59] VITALS: BP 113/66
[2018-02-18 21:24] VITALS: BP 116/72
[2018-02-19] VITALS: BP 92/48
[2018-02-19 04:44] VITALS: BP 104/60
[2018-02-19 05:44] LABS: BASOPHILS 0 % (0-2); EOSINOPHILS 0.4 % (0-7); HEMOGLOBIN 8.4 g/dL (13.5-17.5); IMMATURE GRANULOCYTES 0.4 % (0-5); LYMPHOCYTES 9.7 % (15-50); MCH 28.9 pg (26.0-34.0); MCHC 31.9 g/dL (31.0-37.0); MEAN PLATELET VOLUME 9.9 fL (7.4-10.4); MONOCYTES 5.3 % (2-11); NEUTROPHILS 84.2 % (40-80); PLATELET COUNT 160 10x3/uL (130-400); RBC 2.91 10x6/uL (4.20-6.10)
[2018-02-19 06:05] LABS: ALBUMIN 1.7 g/dL (3.4-5.0); ALKALINE PHOSPHATASE 146 U/L (46-116); ALT (SGPT) 13 U/L (10-68); BILIRUBIN - TOTAL 0.24 mg/dL (0.2-1.3); CALCIUM 7.8 mg/dL (8.5-10.1); CARBON DIOXIDE 28.7 mmol/L (21.0-32.0); CHLORIDE - SERUM 101 mmol/L (98-107); CREATININE - SERUM 0.8 mg/dL (0.6-1.3); MAGNESIUM - SERUM 1.9 mg/dL (1.8-2.4); PROTEIN - SERUM 5.9 g/dL (6.4-8.2); SODIUM 136 mmol/L (136-145); UREA NITROGEN 30 mg/dL (7-18); eGFR NON AFRICAN AMERICAN > 90 mL/min (90-120)
[2018-02-19 06:07] LABS: CALC OSMOLALITY 283 mosm/kg (275-300); GLUCOSE 210 mg/dL (74-106); POTASSIUM - SERUM 3.6 mmol/L (3.5-5.1)
[2018-02-19 06:29] LABS: HEMATOCRIT 26.3 % (42.0-54.0); WBC 11.1 10x3/uL (4.8-10.8)
[2018-02-19 06:30] LABS: MCV 90.4 fL (80.0-100.0)
[2018-02-19 07:30] VITALS: BP 96/60
[2018-02-19 11:00] VITALS: BP 127/95
[2018-02-19 12:23] VITALS: BMI 23.8
[2018-02-19 15:00] VITALS: BP 98/52
[2018-02-19 20:00] VITALS: BP 121/58
[2018-02-19 20:08] VITALS: Ht 180.3 cm; Wt 59.4 kg
[2018-02-20] VITALS (7 sets, daily range): BP systolic 97–107; BP diastolic 61–68
[2018-02-20 06:14] LABS: BASOPHILS 0 % (0-2); EOSINOPHILS 0.5 % (0-7); HEMATOCRIT 24.6 % (42.0-54.0); IMMATURE GRANULOCYTES 0.4 % (0-5); LYMPHOCYTES 8.8 % (15-50); MCH 29.5 pg (26.0-34.0); MCHC 32.5 g/dL (31.0-37.0); MCV 90.8 fL (80.0-100.0); MEAN PLATELET VOLUME 9.5 fL (7.4-10.4); MONOCYTES 5.7 % (2-11); NEUTROPHILS 84.6 % (40-80); PLATELET COUNT 167 10x3/uL (130-400); RBC 2.71 10x6/uL (4.20-6.10); RDW 16.8 % (11.5-14.5); WBC 11.3 10x3/uL (4.8-10.8)
[2018-02-20 06:36] LABS: INR 0.94 (0.85-1.17); PROTIME 12.2 SECONDS (11.6-15.0)
[2018-02-20 06:41] LABS: ALBUMIN 1.5 g/dL (3.4-5.0); ALKALINE PHOSPHATASE 137 U/L (46-116); ALT (SGPT) 15 U/L (10-68); BILIRUBIN - TOTAL 0.31 mg/dL (0.2-1.3); CALCIUM 7.5 mg/dL (8.5-10.1); CARBON DIOXIDE 26.8 mmol/L (21.0-32.0); CHLORIDE - SERUM 99 mmol/L (98-107); CREATININE - SERUM 0.7 mg/dL (0.6-1.3); MAGNESIUM - SERUM 1.7 mg/dL (1.8-2.4); POTASSIUM - SERUM 3.7 mmol/L (3.5-5.1); PROTEIN - SERUM 5.9 g/dL (6.4-8.2); SODIUM 133 mmol/L (136-145); eGFR NON AFRICAN AMERICAN > 90 mL/min (90-120)
[2018-02-20 06:46] LABS: CALC OSMOLALITY 267 mosm/kg (275-300); GLUCOSE 116 mg/dL (74-106); UREA NITROGEN 16 mg/dL (7-18)
[2018-02-21] VITALS (7 sets, daily range): BP systolic 82–103; BP diastolic 48–63
[2018-02-21 06:27] LABS: BASOPHILS 0 % (0-2); EOSINOPHILS 0.7 % (0-7); HEMATOCRIT 21.5 % (42.0-54.0); IMMATURE GRANULOCYTES 0.3 % (0-5); LYMPHOCYTES 6.5 % (15-50); MCH 29.8 pg (26.0-34.0); MCHC 32.6 g/dL (31.0-37.0); MCV 91.5 fL (80.0-100.0); MEAN PLATELET VOLUME 9.7 fL (7.4-10.4); MONOCYTES 5.1 % (2-11); NEUTROPHILS 87.4 % (40-80); PLATELET COUNT 151 10x3/uL (130-400); RBC 2.35 10x6/uL (4.20-6.10); RDW 17.2 % (11.5-14.5); WBC 9.6 10x3/uL (4.8-10.8)
[2018-02-21 06:47] LABS: ALBUMIN 1.3 g/dL (3.4-5.0); ALKALINE PHOSPHATASE 136 U/L (46-116); ALT (SGPT) 13 U/L (10-68); BILIRUBIN - TOTAL 0.22 mg/dL (0.2-1.3); CARBON DIOXIDE 26.7 mmol/L (21.0-32.0); CHLORIDE - SERUM 99 mmol/L (98-107); MAGNESIUM - SERUM 1.7 mg/dL (1.8-2.4); POTASSIUM - SERUM 4.2 mmol/L (3.5-5.1); PROTEIN - SERUM 4.8 g/dL (6.4-8.2); SODIUM 132 mmol/L (136-145); UREA NITROGEN 18 mg/dL (7-18)
[2018-02-21 06:54] LABS: CALC OSMOLALITY 278 mosm/kg (275-300); CREATININE - SERUM 0.9 mg/dL (0.6-1.3); GLUCOSE 319 mg/dL (74-106); eGFR NON AFRICAN AMERICAN > 90 mL/min (90-120)
[2018-02-21 07:06] LABS: CALCIUM 6.8 mg/dL (8.5-10.1)
[2018-02-22 01:19] VITALS: BP 90/60
[2018-02-22 05:38] VITALS: BP 119/64
[2018-02-22 06:27] LABS: BASOPHILS 0.1 % (0-2); EOSINOPHILS 0.7 % (0-7); HEMATOCRIT 28.2 % (42.0-54.0); HEMOGLOBIN 9.1 g/dL (13.5-17.5); IMMATURE GRANULOCYTES 0.3 % (0-5); MCH 29.4 pg (26.0-34.0); MCHC 32.3 g/dL (31.0-37.0); MEAN PLATELET VOLUME 9.4 fL (7.4-10.4); MONOCYTES 4.6 % (2-11); NEUTROPHILS 86.3 % (40-80); PLATELET COUNT 153 10x3/uL (130-400); RDW 16.8 % (11.5-14.5); WBC 9.9 10x3/uL (4.8-10.8)
[2018-02-22 06:51] LABS: ALBUMIN 1.4 g/dL (3.4-5.0); ALKALINE PHOSPHATASE 149 U/L (46-116); ALT (SGPT) 13 U/L (10-68); BILIRUBIN - TOTAL 0.39 mg/dL (0.2-1.3); CALCIUM 7.5 mg/dL (8.5-10.1); CARBON DIOXIDE 25.2 mmol/L (21.0-32.0); CHLORIDE - SERUM 98 mmol/L (98-107); CREATININE - SERUM 0.8 mg/dL (0.6-1.3); MAGNESIUM - SERUM 1.6 mg/dL (1.8-2.4); POTASSIUM - SERUM 4.1 mmol/L (3.5-5.1); PROTEIN - SERUM 5.9 g/dL (6.4-8.2); SODIUM 129 mmol/L (136-145); eGFR NON AFRICAN AMERICAN > 90 mL/min (90-120)
[2018-02-22 07:09] LABS: CALC OSMOLALITY 265 mosm/kg (275-300); GLUCOSE 225 mg/dL (74-106); UREA NITROGEN 13 mg/dL (7-18)
[2018-02-22 09:35] VITALS: BP 110/59
[2018-02-22 12:18] VITALS: BP 91/51
[2018-02-22 21:13] VITALS: BP 115/79
[2018-02-23 00:54] VITALS: BP 111/68
[2018-02-23 05:20] LABS: BASOPHILS 0 % (0-2); EOSINOPHILS 0.2 % (0-7); HEMATOCRIT 26.3 % (42.0-54.0); HEMOGLOBIN 8.4 g/dL (13.5-17.5); IMMATURE GRANULOCYTES 0.4 % (0-5); LYMPHOCYTES 4.5 % (15-50); MCH 29.4 pg (26.0-34.0); MCHC 31.9 g/dL (31.0-37.0); MEAN PLATELET VOLUME 9.9 fL (7.4-10.4); MONOCYTES 3.8 % (2-11); NEUTROPHILS 91.1 % (40-80); PLATELET COUNT 150 10x3/uL (130-400); RBC 2.86 10x6/uL (4.20-6.10); RDW 16.6 % (11.5-14.5); WBC 9.3 10x3/uL (4.8-10.8)
[2018-02-23 05:25] VITALS: BP 109/57
[2018-02-23 05:48] LABS: ALBUMIN 1.2 g/dL (3.4-5.0); ALKALINE PHOSPHATASE 140 U/L (46-116); ALT (SGPT) 13 U/L (10-68); BILIRUBIN - TOTAL 0.25 mg/dL (0.2-1.3); CALC OSMOLALITY 276 mosm/kg (275-300); CALCIUM 7.2 mg/dL (8.5-10.1); CARBON DIOXIDE 20.7 mmol/L (21.0-32.0); CHLORIDE - SERUM 98 mmol/L (98-107); MAGNESIUM - SERUM 1.7 mg/dL (1.8-2.4); POTASSIUM - SERUM 4.5 mmol/L (3.5-5.1); SODIUM 130 mmol/L (136-145); UREA NITROGEN 13 mg/dL (7-18); eGFR NON AFRICAN AMERICAN 84 mL/min (90-120)
[2018-02-23 05:50] LABS: GLUCOSE 388 mg/dL (74-106)
[2018-02-23 08:54] VITALS: BP 105/60
[2018-02-23 16:25] VITALS: BP 107/61
[2018-02-23 20:30] VITALS: BP 102/67
[2018-02-24 00:30] VITALS: BP 117/51
[2018-02-24 04:30] VITALS: BP 102/55
[2018-02-24 05:28] LABS: BASOPHILS 0 % (0-2); EOSINOPHILS 0.9 % (0-7); HEMOGLOBIN 8.2 g/dL (13.5-17.5); IMMATURE GRANULOCYTES 0.3 % (0-5); LYMPHOCYTES 9.4 % (15-50); MCH 28.9 pg (26.0-34.0); MCHC 31.5 g/dL (31.0-37.0); MCV 91.5 fL (80.0-100.0); MEAN PLATELET VOLUME 9.7 fL (7.4-10.4); MONOCYTES 3.4 % (2-11); PLATELET COUNT 157 10x3/uL (130-400); RBC 2.84 10x6/uL (4.20-6.10); RDW 16.4 % (11.5-14.5); WBC 9.3 10x3/uL (4.8-10.8)
[2018-02-24 06:13] LABS: ALBUMIN 1.2 g/dL (3.4-5.0); ALKALINE PHOSPHATASE 140 U/L (46-116); BILIRUBIN - TOTAL 0.31 mg/dL (0.2-1.3); CALCIUM 7.3 mg/dL (8.5-10.1); CHLORIDE - SERUM 101 mmol/L (98-107); PROTEIN - SERUM 6.2 g/dL (6.4-8.2); SODIUM 133 mmol/L (136-145)
[2018-02-24 06:17] LABS: ALT (SGPT) 9 U/L (10-68); CALC OSMOLALITY 264 mosm/kg (275-300); CARBON DIOXIDE 25.9 mmol/L (21.0-32.0); CREATININE - SERUM 0.7 mg/dL (0.6-1.3); GLUCOSE 93 mg/dL (74-106); UREA NITROGEN 9 mg/dL (7-18); eGFR NON AFRICAN AMERICAN > 90 mL/min (90-120)
[2018-02-24 08:37] VITALS: BP 100/66
[2018-02-24 11:16] VITALS: BP 120/61
[2018-02-24 22:01] VITALS: BP 96/56
[2018-02-25 00:38] VITALS: BP 96/66
[2018-02-25 05:32] LABS: BASOPHILS 0 % (0-2); EOSINOPHILS 0 % (0-7); HEMATOCRIT 26.3 % (42.0-54.0); HEMOGLOBIN 8.3 g/dL (13.5-17.5); IMMATURE GRANULOCYTES 0.2 % (0-5); MCH 29.1 pg (26.0-34.0); MCHC 31.6 g/dL (31.0-37.0); MCV 92.3 fL (80.0-100.0); MEAN PLATELET VOLUME 9.7 fL (7.4-10.4); MONOCYTES 1.7 % (2-11); NEUTROPHILS 89.1 % (40-80); PLATELET COUNT 176 10x3/uL (130-400); RBC 2.85 10x6/uL (4.20-6.10); RDW 16.4 % (11.5-14.5)
[2018-02-25 05:34] LABS: WBC 5.3 10x3/uL (4.8-10.8)
[2018-02-25 05:57] LABS: ALBUMIN 1.2 g/dL (3.4-5.0); ALKALINE PHOSPHATASE 149 U/L (46-116); ALT (SGPT) 12 U/L (10-68); BILIRUBIN - TOTAL 0.22 mg/dL (0.2-1.3); CALC OSMOLALITY 278 mosm/kg (275-300); CALCIUM 7.8 mg/dL (8.5-10.1); CHLORIDE - SERUM 100 mmol/L (98-107); CREATININE - SERUM 0.8 mg/dL (0.6-1.3); GLUCOSE 290 mg/dL (74-106); POTASSIUM - SERUM 4.4 mmol/L (3.5-5.1); PROTEIN - SERUM 6.6 g/dL (6.4-8.2); SODIUM 134 mmol/L (136-145); UREA NITROGEN 13 mg/dL (7-18); eGFR NON AFRICAN AMERICAN > 90 mL/min (90-120)
[2018-02-25 06:36] VITALS: BP 99/61
[2018-02-25 08:51] VITALS: BP 91/53
[2018-02-25 10:55] VITALS: BP 85/43
[2018-02-25 16:45] VITALS: BP 95/59
[2018-02-25 21:04] VITALS: BP 113/63
[2018-02-26 00:56] VITALS: BP 97/53
[2018-02-26 04:22] VITALS: BP 94/53
[2018-02-26 04:33] LABS: BASOPHILS 0 % (0-2); EOSINOPHILS 0.2 % (0-7); HEMATOCRIT 25.8 % (42.0-54.0); HEMOGLOBIN 8.1 g/dL (13.5-17.5); IMMATURE GRANULOCYTES 0.3 % (0-5); MCH 28.9 pg (26.0-34.0); MCHC 31.4 g/dL (31.0-37.0); MCV 92.1 fL (80.0-100.0); MEAN PLATELET VOLUME 9.7 fL (7.4-10.4); MONOCYTES 2.4 % (2-11); NEUTROPHILS 92.1 % (40-80); RDW 16.2 % (11.5-14.5)
[2018-02-26 04:34] LABS: PLATELET COUNT 214 10x3/uL (130-400); WBC 9.1 10x3/uL (4.8-10.8)
[2018-02-26 04:50] LABS: ALBUMIN 1.3 g/dL (3.4-5.0); ALKALINE PHOSPHATASE 135 U/L (46-116); BILIRUBIN - TOTAL 0.12 mg/dL (0.2-1.3); CALCIUM 8.2 mg/dL (8.5-10.1); CARBON DIOXIDE 25.7 mmol/L (21.0-32.0); CHLORIDE - SERUM 98 mmol/L (98-107); MAGNESIUM - SERUM 1.9 mg/dL (1.8-2.4); POTASSIUM - SERUM 4.1 mmol/L (3.5-5.1); PROTEIN - SERUM 6.6 g/dL (6.4-8.2); SODIUM 136 mmol/L (136-145); UREA NITROGEN 16 mg/dL (7-18); eGFR NON AFRICAN AMERICAN 84 mL/min (90-120)
[2018-02-26 04:54] LABS: ALT (SGPT) 16 U/L (10-68); CALC OSMOLALITY 287 mosm/kg (275-300); GLUCOSE 364 mg/dL (74-106)
[2018-02-26 07:49] VITALS: BP 126/76
[2018-02-26 18:17] VITALS: BP 96/54
[2018-02-26 20:29] VITALS: BP 110/63
[2018-02-27 01:10] VITALS: BP 128/73
[2018-02-27 05:13] LABS: BASOPHILS 0 % (0-2); EOSINOPHILS 0 % (0-7); HEMATOCRIT 26.5 % (42.0-54.0); HEMOGLOBIN 8.3 g/dL (13.5-17.5); IMMATURE GRANULOCYTES 0.3 % (0-5); LYMPHOCYTES 7.2 % (15-50); MCHC 31.3 g/dL (31.0-37.0); MCV 92.7 fL (80.0-100.0); MEAN PLATELET VOLUME 9.8 fL (7.4-10.4); NEUTROPHILS 89.5 % (40-80); PLATELET COUNT 222 10x3/uL (130-400); RBC 2.86 10x6/uL (4.20-6.10); RDW 16.2 % (11.5-14.5)
[2018-02-27 05:15] LABS: WBC 6.3 10x3/uL (4.8-10.8)
[2018-02-27 06:04] LABS: ALBUMIN 1.4 g/dL (3.4-5.0); ALKALINE PHOSPHATASE 138 U/L (46-116); ALT (SGPT) 17 U/L (10-68); BILIRUBIN - TOTAL 0.14 mg/dL (0.2-1.3); CARBON DIOXIDE 23.3 mmol/L (21.0-32.0); CHLORIDE - SERUM 103 mmol/L (98-107); CREATININE - SERUM 0.9 mg/dL (0.6-1.3); PROTEIN - SERUM 6.4 g/dL (6.4-8.2); SODIUM 140 mmol/L (136-145); UREA NITROGEN 16 mg/dL (7-18); eGFR NON AFRICAN AMERICAN > 90 mL/min (90-120)
[2018-02-27 06:08] LABS: CALC OSMOLALITY 290 mosm/kg (275-300); GLUCOSE 297 mg/dL (74-106)
[2018-02-27 06:18] VITALS: BP 101/62
[2018-02-27 11:00] VITALS: BP 136/72
[2018-02-27 11:52] VITALS: BP 114/62
[2018-02-27 18:37] VITALS: BP 145/65
[2018-02-27 19:00] VITALS: BP 107/63
[2018-02-28 00:55] VITALS: BP 101/62
[2018-02-28 05:57] LABS: BASOPHILS 0 % (0-2); EOSINOPHILS 0 % (0-7); HEMATOCRIT 27.9 % (42.0-54.0); HEMOGLOBIN 8.6 g/dL (13.5-17.5); IMMATURE GRANULOCYTES 0.5 % (0-5); LYMPHOCYTES 8.7 % (15-50); MCH 28.7 pg (26.0-34.0); MCHC 30.8 g/dL (31.0-37.0); MEAN PLATELET VOLUME 9.1 fL (7.4-10.4); MONOCYTES 2.3 % (2-11); NEUTROPHILS 88.5 % (40-80); PLATELET COUNT 244 10x3/uL (130-400); RDW 16.4 % (11.5-14.5); WBC 6.5 10x3/uL (4.8-10.8)
[2018-02-28 06:23] LABS: ALBUMIN 1.4 g/dL (3.4-5.0); ALKALINE PHOSPHATASE 149 U/L (46-116); ALT (SGPT) 13 U/L (10-68); BILIRUBIN - TOTAL 0.19 mg/dL (0.2-1.3); CARBON DIOXIDE 26.4 mmol/L (21.0-32.0); CHLORIDE - SERUM 105 mmol/L (98-107); CREATININE - SERUM 0.8 mg/dL (0.6-1.3); MAGNESIUM - SERUM 1.9 mg/dL (1.8-2.4); POTASSIUM - SERUM 4.1 mmol/L (3.5-5.1); PROTEIN - SERUM 6.3 g/dL (6.4-8.2); SODIUM 140 mmol/L (136-145); UREA NITROGEN 19 mg/dL (7-18); eGFR NON AFRICAN AMERICAN > 90 mL/min (90-120)
[2018-02-28 06:24] LABS: CALC OSMOLALITY 284 mosm/kg (275-300); GLUCOSE 168 mg/dL (74-106)
[2018-02-28 07:08] VITALS: BP 121/66
[2018-02-28 08:47] VITALS: BP 131/68
[2018-02-28 09:17] LABS: APPEARANCE CLEAR (CLEAR); BILIRUBIN NEGATIVE (NEGATIVE); COLOR YELLOW (YELLOW); GLUCOSE 50 mg/dL (NEGATIVE); NITRITE NEGATIVE (NEGATIVE); PROTEIN NEGATIVE (NEGATIVE); SPECIFIC GRAVITY 1.005 (1.005-1.020); UROBILINOGEN NORMAL (NORMAL)
[2018-02-28 11:06] VITALS: BP 142/73
[2018-02-28 22:25] VITALS: BP 134/77
== END 2018-02-28 23:25 | disposition home health service (06) | DRG 270 ==
LOC: D.ER 08:43 → D.M2 10:48 → D.EDHOLD 10:48 → D.M2 11:18
PROVIDERS: Emergency Medicine; Family Medicine; General Practice; Internal Medicine Nephrology
PROC: 06H03DZ Insertion of Intraluminal Device into Inferior Vena Cava, Percutaneous Approach (ICD-10-PCS; 2018-02-20)
PROC: 04CN3ZZ Extirpation of Matter from Left Popliteal Artery, Percutaneous Approach (ICD-10-PCS; 2018-02-20)
PROC: 3E05317 Introduction of Other Thrombolytic into Peripheral Artery, Percutaneous Approach (ICD-10-PCS; 2018-02-20)
PROC: 04CD3ZZ Extirpation of Matter from Left Common Iliac Artery, Percutaneous Approach (ICD-10-PCS; principal; 2018-02-20 14:30)
DX: I82.503 Chronic embolism and thrombosis of unspecified deep veins of lower extremity, bilateral (principal); J96.01 Acute respiratory failure with hypoxia; J18.9 Pneumonia, unspecified organism; I27.82 Chronic pulmonary embolism; C34.90 Malignant neoplasm of unspecified part of unspecified bronchus or lung; C79.51 Secondary malignant neoplasm of bone; C79.31 Secondary malignant neoplasm of brain; F17.213 Nicotine dependence, cigarettes, with withdrawal; E87.1 Hypo-osmolality and hyponatremia; C79.70 Secondary malignant neoplasm of unspecified adrenal gland; C77.1 Secondary and unspecified malignant neoplasm of intrathoracic lymph nodes; C78.7 Secondary malignant neoplasm of liver and intrahepatic bile duct; J91.0 Malignant pleural effusion; J44.1 Chronic obstructive pulmonary disease with (acute) exacerbation; J44.0 Chronic obstructive pulmonary disease with (acute) lower respiratory infection; Z79.01 Long term (current) use of anticoagulants; I10 Essential (primary) hypertension; B19.20 Unspecified viral hepatitis C without hepatic coma; E11.65 Type 2 diabetes mellitus with hyperglycemia; D64.81 Anemia due to antineoplastic chemotherapy; F32.9 Major depressive disorder, single episode, unspecified